=== PATIENT | female | born 1950 | race African-American/Black ===

== ENCOUNTER → 2019-12-17 | Emergency (ER) | payer MEDICARE, MEDICAID ==
[~2019-12-17] VITALS: Ht 160 cm; Wt 73.9 kg
[~2019-12-17] MED LIST: POTASSIUM CHL 20 Meq TABLET PO ONE
[2019-12-17 14:07] LABS: Basophils # (auto) 0 10 ^3/uL (0-0.2); Eosinophils # (auto) 0.1 10 ^3/uL (0-0.8); Eosinophils % (auto) 3.6 % (0.0-7.0); Hemoglobin 11.7 g/dL (12.2-16.2); Lymphocytes # (auto) 1.3 10 ^3/uL (0.4-5.4); Lymphocytes % (auto) 32.5 % (10.0-50.0); Mean Corpuscular Hemoglobin 32.7 pg (28.0-32.0); Mean Corpuscular Hgb Conc. 34.5 g/dL (32.0-36.0); Mean Corpuscular Volume 94.7 fL (80.0-100.0); Monocytes # (auto) 0.7 10 ^3/uL (0-1.3); Neutrophils # (auto) 1.9 10 ^3/uL (1.6-8.6); Neutrophils % (auto) 46.9 % (37.0-80.0); Nucleated Red Blood Cells % 0.1 %; Platelet Count (auto) 134 10^3/uL (140-450); Red Blood Cells 3.59 10^6/uL (4.0-5.20); Red Cell Distribution Width 15.1 % (11.8-14.3); White Blood Cell 4.1 10^3/uL (4.4-10.8)
[2019-12-17 14:23] LABS: BUN/Creatinine Ratio 17.2; Calcium 8.3 mg/dL (8.5-10.1)
[2019-12-17 14:26] LABS: Bilirubin, Total 1.5 mg/dL (0.2-1.0); Total Protein 8.1 g/dL (6.4-8.2)
[2019-12-17 15:10] VITALS: BP 127/70
== END | disposition home or self-care (01) ==
LOC: ER 12:19
DX: E87.6 Hypokalemia (principal); I10 Essential (primary) hypertension
CPT/HCPCS: 36415; 80053; 85025

== ENCOUNTER 2020-03-31 17:48 | Inpatient (IN) | payer MEDICARE, MEDICAID ==
[~2020-03-31] VITALS: Ht 160 cm; Wt 72.8 kg
[2020-03-31 19:50] LABS: Basophils # (auto) 0 10 ^3/uL (0-0.2); Basophils % (auto) 0.6 % (0.0-2.0); Eosinophils # (auto) 0.1 10 ^3/uL (0-0.8); Eosinophils % (auto) 3.1 % (0.0-7.0); Hematocrit 38.5 % (36.0-46.0); Hemoglobin 12.9 g/dL (12.2-16.2); Lymphocytes # (auto) 1.8 10 ^3/uL (0.4-5.4); Lymphocytes % (auto) 36.9 % (10.0-50.0); Mean Corpuscular Hemoglobin 30.2 pg (28.0-32.0); Mean Corpuscular Hgb Conc. 33.4 g/dL (32.0-36.0); Mean Corpuscular Volume 90.5 fL (80.0-100.0); Monocytes # (auto) 0.6 10 ^3/uL (0-1.3); Monocytes % (auto) 13.1 % (0.0-12.0); Neutrophils # (auto) 2.2 10 ^3/uL (1.6-8.6); Neutrophils % (auto) 46.3 % (37.0-80.0); Nucleated Red Blood Cells % 0.3 %; Platelet Count (auto) 106 10^3/uL (140-450); Red Blood Cells 4.26 10^6/uL (4.0-5.20); Red Cell Distribution Width 17.1 % (11.8-14.3); White Blood Cell 4.8 10^3/uL (4.4-10.8)
[2020-03-31 20:05] LABS: INR 1.49 (0.9-1.15)
[2020-03-31 20:06] LABS: Albumin 2.5 g/dL (3.4-5.0); Anion Gap 8 (5-15); Blood Urea Nitrogen 13 mg/dL (7-18); Calcium 8.2 mg/dL (8.5-10.1); Carbon Dioxide 22 mmol/L (21-32); Chloride 110 mmol/L (98-107); Glucose 81 mg/dL (74-106); Magnesium 2.1 mg/dL (1.6-2.6); Sodium 140 mmol/L (136-145)
[2020-03-31 20:12] LABS: Alanine Aminotransferase 64 U/L (13-56); Alkaline Phosphatase 149 U/L (45-117); Aspartate Aminotransferase 109 U/L (15-37); BUN/Creatinine Ratio 20.6; Bilirubin, Total 1.7 mg/dL (0.2-1.0); GFR African American 120 mL/min; GFR Non-African American 100 mL/min
[2020-03-31 20:32] LABS: Blood Alcohol < 3.0 mg/dL (0-5)
[2020-03-31 20:35] LABS: Potassium 2.8 mmol/L (3.5-5.1)
[2020-03-31] MEDS ORDERED: POTASSIUM CHL 20MEQ/100ML 100 ML IV ONE (20:45)
[2020-03-31] MEDS ORDERED: POTASSIUM EFFERVESENT TAB 25 MEQ PO ONE (20:45)
[2020-03-31] MEDS ORDERED: IOHEXOL 350 MG/ML 100ML IJ ONE (23:46)
[2020-04-01] VITALS (7 sets, daily range): BP systolic 118–126; BP diastolic 64–77
[2020-04-01 01:27] LABS: Urine Amorphous Crystal FEW /hpf (None Seen); Urine Bacteria FEW /hpf (None Seen); Urine Blood Negative /uL (Negative); Urine Mucus FEW (None Seen); Urine Specific Gravity 1.028 (1.001-1.035); Urine WBC 1 /hpf (0 - 5)
[2020-04-01 01:53] LABS: Alcohol, Urine < 3.0 mg/dL (0-10); Amphetamine Screen, Urine NEGATIVE (NEGATIVE); Barbiturate Scree,Urine NEGATIVE (NEGATIVE); Benzodiazephine Screen, Urine NEGATIVE (NEGATIVE); Cannabinoid Screen, Urine NEGATIVE (NEGATIVE); Cocaine Screen, Urine NEGATIVE (NEGATIVE); Opiate Scree,Urine NEGATIVE (NEGATIVE); Phencyclidine Screen, Urine NEGATIVE (NEGATIVE)
[2020-04-01] MEDS ORDERED: ONDANSETRON HCL 4 MG/2 ML VIAL IV PRN (04:15)
[2020-04-01] MEDS ORDERED: AMLO5TAB15 PO (05:29)
[2020-04-01] MEDS ORDERED: ALBUAER3 IN (05:29)
--- NOTE | 2020-04-01 05:56 | NUR ---
Telemetry admit from ER AUGUSTIN DAVIS admitted to [facility] unit after SBAR received. Patient oriented to Marquis coker RN, unit, room 202, bed, and unit policies regarding patient care and visiting hours. Patient VS taken, weighed by bedscale and encouraged to call if they need something. All questions and concerns addressed, patient verbalized understanding.
--- NOTE | 2020-04-01 07:30 | NUR ---
Opening Shift Note Assumed care of patient, awake and alert. No S/S of distress/SOB or pain. Bed in lowest and locked position with side rails up x2 and call light in reach. Instructed on POC and to call for assist PRN, will continue to monitor for changes Q1hr and PRN.
[2020-04-01] MEDS: POTASSIUM CHL 10 Meq TABLET PO SCH (09:37)
[2020-04-01] MEDS: FAMOTIDINE 20 MG TAB PO SCH ×2 (09:37→21:36)
[2020-04-01] MEDS: FUROSEMIDE 20 MG TAB PO SCH (09:37)
[2020-04-01] MEDS ORDERED: LACTULOSE 20Gm/30ML SOLN PO SCH (10:00)
[2020-04-01] MEDS ORDERED: TRIAMTERENE/HCTZ 37.5/25 MG CAP/TAB PO SCH (10:00)
--- NOTE | 2020-04-01 10:37 | NUR ---
SPOKE TO DR. VELA REGARDING PATIENT REQUEST FOR PAIN MEDICATIONS. MD AWARE AND NO NEW ORDERS RECEIVED AT THIS TIME.
[2020-04-01 11:10] LABS: Basophils # (auto) 0 10 ^3/uL (0-0.2); Basophils % (auto) 0.5 % (0.0-2.0); Eosinophils # (auto) 0.2 10 ^3/uL (0-0.8); Eosinophils % (auto) 4.9 % (0.0-7.0); Hemoglobin 11.2 g/dL (12.2-16.2); Lymphocytes # (auto) 1.5 10 ^3/uL (0.4-5.4); Lymphocytes % (auto) 38.2 % (10.0-50.0); Mean Corpuscular Hgb Conc. 33.1 g/dL (32.0-36.0); Mean Corpuscular Volume 90.4 fL (80.0-100.0); Monocytes # (auto) 0.8 10 ^3/uL (0-1.3); Neutrophils # (auto) 1.5 10 ^3/uL (1.6-8.6); Neutrophils % (auto) 37.4 % (37.0-80.0); Platelet Count (auto) 88 10^3/uL (140-450); Red Blood Cells 3.76 10^6/uL (4.0-5.20); Red Cell Distribution Width 17.1 % (11.8-14.3); White Blood Cell 3.9 10^3/uL (4.4-10.8)
[2020-04-01 11:24] LABS: Albumin 1.9 g/dL (3.4-5.0); Calcium 7.6 mg/dL (8.5-10.1)
[2020-04-01 11:26] LABS: BUN/Creatinine Ratio 19.3; Bilirubin, Total 1.4 mg/dL (0.2-1.0)
[2020-04-01] MEDS: cefTRIAXone 1GM/50ML D5W 50 ML IV SCH (12:04)
[2020-04-01] MEDS: rifAXIMin 550 MG TAB PO SCH ×2 (12:04→21:36)
[2020-04-01] MEDS ORDERED: POTASSIUM EFFERVESENT TAB 25 MEQ PO ONE (12:15)
[2020-04-01] MEDS: POTASSIUM CHL 20 Meq TABLET PO SCH ×2 (13:05→15:20)
[2020-04-01] MEDS: LACTULOSE 20Gm/30ML SOLN PO SCH ×3 (18:38→21:37)
--- NOTE | 2020-04-01 20:00 | NUR ---
Opening Shift Note Assumed care of patient, awake and alert. No S/S of distress/SOB or pain. Instructed on POC and to call for assist PRN, will continue to monitor for changes Q1hr and PRN.
[2020-04-02 05:00] VITALS: BP 119/67
[2020-04-02] MEDS: LACTULOSE 20Gm/30ML SOLN PO SCH (05:12)
[2020-04-02 06:12] LABS: Hematocrit 34.1 % (36.0-46.0); Hemoglobin 11.4 g/dL (12.2-16.2); Mean Corpuscular Hemoglobin 30.5 pg (28.0-32.0); Mean Corpuscular Hgb Conc. 33.5 g/dL (32.0-36.0); Mean Corpuscular Volume 91.2 fL (80.0-100.0); Platelet Count (auto) 86 10^3/uL (140-450); Red Blood Cells 3.74 10^6/uL (4.0-5.20); Red Cell Distribution Width 17.2 % (11.8-14.3); White Blood Cell 3.9 10^3/uL (4.4-10.8)
[2020-04-02 06:19] LABS: Band Neutrophils % (manual) 0; Basophils % (manual) 0 (0.0-2.0); Blast Cells 0; Metamyelocytes % 0; Promyelocytes % 0; Reactive Lymphocytes 0
[2020-04-02 06:36] LABS: Albumin 1.8 g/dL (3.4-5.0); Calcium 7.5 mg/dL (8.5-10.1); Potassium 3.9 mmol/L (3.5-5.1)
[2020-04-02 06:38] LABS: BUN/Creatinine Ratio 20.4
[2020-04-02 06:39] LABS: Bilirubin, Total 1.4 mg/dL (0.2-1.0); Total Protein 6.8 g/dL (6.4-8.2)
[2020-04-02 07:12] LABS: Eosinophils % (manual) 6 (0-7); Lymphocytes % (manual) 48 (10.0-50.0); Monocytes % (manual) 8 (0-12); Myelocytes % 1
[2020-04-02 08:59] VITALS: BP 111/64
[2020-04-02] MEDS: FAMOTIDINE 20 MG TAB PO SCH (09:37)
[2020-04-02] MEDS: rifAXIMin 550 MG TAB PO SCH (09:37)
[2020-04-02] MEDS: POTASSIUM CHL 10 Meq TABLET PO SCH (09:37)
[2020-04-02] MEDS: cefTRIAXone 1GM/50ML D5W 50 ML IV SCH (09:38)
[2020-04-02] MEDS: FUROSEMIDE 20 MG TAB PO SCH (09:38)
--- NOTE | 2020-04-02 09:56 | NUR ---
Patient OOB ad joy. States she is ready to go home. Will continue to monitor.
--- NOTE | 2020-04-02 11:48 | NUR ---
Dr. Lynch in to see patient as hospitalist. Patien to be discharged today.
[2020-04-02 12:09] VITALS: BP 118/78
[2020-04-02 13:33] VITALS: BP 111/64
== END 2020-04-02 14:10 | disposition home or self-care (01) | DRG 443 ==
LOC: EDSEX 17:48 → ER 17:48 → EDBD 17:48 → OVERFLOW 17:49 → CENTRAL 04-01 05:15
PROVIDERS: ADMIT Nurse Practitioner; ATTEND Internal Medicine Nephrology
DX: K72.90 Hepatic failure, unspecified without coma (principal); F41.9 Anxiety disorder, unspecified; E87.6 Hypokalemia; K74.60 Unspecified cirrhosis of liver; I10 Essential (primary) hypertension; N28.1 Cyst of kidney, acquired; G89.29 Other chronic pain; M54.9 Dorsalgia, unspecified; R74.0 Nonspecific elevation of levels of transaminase and lactic acid dehydrogenase [LDH]; Z87.891 Personal history of nicotine dependence; Z90.49 Acquired absence of other specified parts of digestive tract
CPT/HCPCS: 36415; 70450; 71275; 76705; 80053; 80307; 80320; 81001; 82140; 83605; 83735; 84132; 84484; 85007; 85025; 85027; 85379; 85610; 85730; 87040; 87086; G0378; J0696; J3480

== ENCOUNTER → 2020-06-02 | Outpatient (CLI) | payer MEDICARE, MEDICAID ==
[~2020-06-02] MED LIST changes: +ALBUAER3 IN; +AMLO5TAB15 PO; -POTASSIUM CHL 20 Meq TABLET PO ONE
[2020-06-02 11:20] LABS: Basophils # (auto) 0 10 ^3/uL (0-0.2); Basophils % (auto) 0.9 % (0.0-2.0); Eosinophils # (auto) 0.2 10 ^3/uL (0-0.8); Eosinophils % (auto) 4.5 % (0.0-7.0); Hematocrit 36.3 % (36.0-46.0); Hemoglobin 12.1 g/dL (12.2-16.2); Lymphocytes # (auto) 1.5 10 ^3/uL (0.4-5.4); Lymphocytes % (auto) 37.5 % (10.0-50.0); Mean Corpuscular Hemoglobin 30.9 pg (28.0-32.0); Mean Corpuscular Hgb Conc. 33.4 g/dL (32.0-36.0); Mean Corpuscular Volume 92.5 fL (80.0-100.0); Monocytes # (auto) 0.7 10 ^3/uL (0-1.3); Monocytes % (auto) 16.7 % (0.0-12.0); Neutrophils # (auto) 1.6 10 ^3/uL (1.6-8.6); Neutrophils % (auto) 40.4 % (37.0-80.0); Nucleated Red Blood Cells % 0.1 %; Platelet Count (auto) 90 10^3/uL (140-450); Red Blood Cells 3.92 10^6/uL (4.0-5.20); Red Cell Distribution Width 15.5 % (11.8-14.3); White Blood Cell 3.9 10^3/uL (4.4-10.8)
[2020-06-02 11:44] LABS: Calcium 8.3 mg/dL (8.5-10.1); Potassium 3.3 mmol/L (3.5-5.1)
[2020-06-02 11:50] LABS: Albumin 2.5 g/dL (3.4-5.0); BUN/Creatinine Ratio 15.7; Bilirubin, Total 1.3 mg/dL (0.2-1.0); Total Protein 7.5 g/dL (6.4-8.2)
[2020-06-02 11:51] LABS: Urine Bacteria FEW /hpf (None Seen); Urine Blood Negative /uL (Negative); Urine Mucus FEW (None Seen); Urine Specific Gravity 1.024 (1.001-1.035); Urine WBC 36 /hpf (0 - 5)
[2020-06-02 11:57] LABS: Hepatitis B Surface Antibody Positive
[2020-06-02 12:35] LABS: Hepatitis A Total Antibody Positive
[2020-06-02 14:43] LABS: Hepatitis C Antibody Reactive (Negative)
[2020-06-02 14:46] LABS: Hepatitis A Ab IgM Negative
[2020-06-02 14:49] LABS: Hepatitis B Core IgM Negative
[2020-06-02 14:56] LABS: Hepatitis B Core Total AB Positive
== END | disposition home or self-care (01) ==
LOC: LAB 10:38
PROVIDERS: ATTEND Internal Medicine
DX: B18.2 Chronic viral hepatitis C (principal); I10 Essential (primary) hypertension
CPT/HCPCS: 36415; 80053; 81001; 82140; 82550; 83735; 85025; 86704; 86705; 86706; 86708; 86709; 86803

== ENCOUNTER → 2020-06-22 | Outpatient (CLI) | payer MEDICARE, MEDICAID | END | disposition home or self-care (01) | LOC: LAB 10:16 | PROVIDERS: ATTEND Internal Medicine | DX: E87.6 Hypokalemia (principal); K74.60 Unspecified cirrhosis of liver | CPT/HCPCS: 36415; 84132; 87340 ==

== ENCOUNTER → 2020-08-01 | Outpatient (CLI) | payer MEDICARE, MEDICAID ==
[2020-08-01 10:20] LABS: Basophils # (auto) 0 10 ^3/uL (0-0.2); Basophils % (auto) 0.7 % (0.0-2.0); Eosinophils # (auto) 0.1 10 ^3/uL (0-0.8); Eosinophils % (auto) 2.1 % (0.0-7.0); Hematocrit 40.6 % (36.0-46.0); Hemoglobin 13.4 g/dL (12.2-16.2); Lymphocytes # (auto) 1.5 10 ^3/uL (0.4-5.4); Lymphocytes % (auto) 31.4 % (10.0-50.0); Mean Corpuscular Hemoglobin 30.5 pg (28.0-32.0); Mean Corpuscular Volume 92.4 fL (80.0-100.0); Monocytes # (auto) 0.8 10 ^3/uL (0-1.3); Monocytes % (auto) 15.9 % (0.0-12.0); Neutrophils # (auto) 2.4 10 ^3/uL (1.6-8.6); Neutrophils % (auto) 49.9 % (37.0-80.0); Nucleated Red Blood Cells % 0.2 %; Platelet Count (auto) 94 10^3/uL (140-450); Red Cell Distribution Width 16.2 % (11.8-14.3); White Blood Cell 4.8 10^3/uL (4.4-10.8)
[2020-08-01 10:41] LABS: Potassium 4.2 mmol/L (3.5-5.1)
[2020-08-01 11:09] LABS: INR 1.4 (0.9-1.15)
== END | disposition home or self-care (01) ==
LOC: LAB 10:05
PROVIDERS: ATTEND Internal Medicine
DX: I10 Essential (primary) hypertension (principal); B18.2 Chronic viral hepatitis C
CPT/HCPCS: 36415; 80061; 84132; 85025; 85610

== ENCOUNTER 2021-02-13 19:26 | Emergency (ER) | payer MEDICARE, MEDICAID ==
[~2021-02-13] VITALS: Ht 160 cm; Wt 68.0 kg
[~2021-02-13 19:26] MED LIST changes: +AMLO-489 PO; -AMLO5TAB15 PO
[2021-02-13 20:36] LABS: Basophils # (auto) 0 10 ^3/uL (0-0.2); Basophils % (auto) 0.6 % (0.0-2.0); Eosinophils # (auto) 0.1 10 ^3/uL (0-0.8); Eosinophils % (auto) 2.4 % (0.0-7.0); Hematocrit 38.5 % (36.0-46.0); Hemoglobin 13.3 g/dL (12.2-16.2); Lymphocytes # (auto) 1.7 10 ^3/uL (0.4-5.4); Lymphocytes % (auto) 36.8 % (10.0-50.0); Mean Corpuscular Hemoglobin 32.3 pg (28.0-32.0); Mean Corpuscular Hgb Conc. 34.4 g/dL (32.0-36.0); Monocytes # (auto) 0.8 10 ^3/uL (0-1.3); Monocytes % (auto) 16.9 % (0.0-12.0); Neutrophils % (auto) 43.3 % (37.0-80.0); Nucleated Red Blood Cells % 0.8 %; Platelet Count (auto) 75 10^3/uL (140-450); Red Cell Distribution Width 15.5 % (11.8-14.3); White Blood Cell 4.7 10^3/uL (4.4-10.8)
[2021-02-13 20:52] LABS: Potassium 4.1 mmol/L (3.5-5.1)
[2021-02-13 20:59] LABS: Albumin 1.9 g/dL (3.4-5.0); BUN/Creatinine Ratio 17.6; Bilirubin, Total 3.4 mg/dL (0.2-1.0); Calcium 7.9 mg/dL (8.5-10.1); Total Protein 7.3 g/dL (6.4-8.2)
[2021-02-13 23:04] VITALS: BP 118/63
== END 2021-02-13 23:06 | disposition home or self-care (01) ==
LOC: ER 19:26
DX: E72.29 Other disorders of urea cycle metabolism (principal); K74.60 Unspecified cirrhosis of liver; I10 Essential (primary) hypertension; Z79.899 Other long term (current) drug therapy; Z90.49 Acquired absence of other specified parts of digestive tract; Z98.890 Other specified postprocedural states; Z87.891 Personal history of nicotine dependence
CPT/HCPCS: 36415; 80053; 82140; 85025

== ENCOUNTER 2022-06-29 22:29 | Inpatient (IN) | payer OTHER, MEDICAID ==
[~2022-06-29] VITALS: Ht 167.6 cm; Wt 70.2 kg
[2022-06-29 23:25] LABS: Hemoglobin 13.7 g/dL (12.2-16.2); Red Cell Distribution Width 15.5 % (11.8-14.3)
[2022-06-29 23:26] LABS: Hematocrit 41.3 % (36.0-46.0); Mean Corpuscular Hemoglobin 32.5 pg (28.0-32.0); Mean Corpuscular Hgb Conc. 33.1 g/dL (32.0-36.0); Mean Corpuscular Volume 98.2 fL (80.0-100.0); White Blood Cell 9.1 10^3/uL (4.4-10.8)
[2022-06-29 23:47] LABS: Albumin 1.9 g/dL (3.4-5.0); Calcium 7.4 mg/dL (8.5-10.1)
[2022-06-29 23:49] LABS: BUN/Creatinine Ratio 23.1
[2022-06-29 23:51] LABS: Band Neutrophils % (manual) 0; Basophils % (manual) 0 (0.0-2.0); Blast Cells 0; Eosinophils % (manual) 0 (0-7); Metamyelocytes % 0; Myelocytes % 0; Promyelocytes % 0; Reactive Lymphocytes 0
[2022-06-29 23:52] LABS: Bilirubin, Total 4.7 mg/dL (0.2-1.0); Total Protein 5.3 g/dL (6.4-8.2)
[2022-06-29 23:53] LABS: Lymphocytes % (manual) 9 (10.0-50.0); Monocytes % (manual) 12 (0-12)
[2022-06-30] MEDS ORDERED: LACTULOSE 20Gm/30ML SOLN PO ONE (01:00)
[2022-06-30 01:19] LABS: Urine Bacteria NONE SEEN /hpf (None Seen); Urine Blood Negative /uL (Negative); Urine Mucus FEW (None Seen); Urine Specific Gravity 1.032 (1.001-1.035); Urine WBC 2 /hpf (0 - 5)
[2022-06-30 01:38] LABS: Amphetamine Screen, Urine NEGATIVE (NEGATIVE); Barbiturate Scree,Urine NEGATIVE (NEGATIVE); Benzodiazephine Screen, Urine POSITIVE (NEGATIVE); Cannabinoid Screen, Urine NEGATIVE (NEGATIVE); Cocaine Screen, Urine NEGATIVE (NEGATIVE); Opiate Scree,Urine POSITIVE (NEGATIVE); Phencyclidine Screen, Urine NEGATIVE (NEGATIVE)
[2022-06-30] MEDS ORDERED: DOCUSATE SOD 100 MG CAP PO PRN (02:00)
[2022-06-30] MEDS ORDERED: ALBUMIN 25% 100 ML IV ONE (02:00)
[2022-06-30] MEDS ORDERED: ONDANSETRON HCL 4 MG/2 ML VIAL IV PRN (02:00)
[2022-06-30] MEDS ORDERED: MORPHINE SULFATE INJ 2 MG/ml SYRG IV PRN ×2 (02:00→02:30)
[2022-06-30] MEDS ORDERED: NITROGLYCERIN 0.4 MG SL TAB SL PRN (02:30)
[2022-06-30] MEDS ORDERED: LACTULOSE 20Gm/30ML SOLN PR SCH (02:30)
[2022-06-30] MEDS ORDERED: AZITHROMYCIN 500MG/ 250ML 250 ML IV ONE (05:00)
[2022-06-30] MEDS ORDERED: LACTULOSE 20Gm/30ML SOLN PO SCH (06:00)
[2022-06-30] MEDS: SODIUM CHLOR 0.9% PF (SALINE LOCK) 10ML VIAL/SYR IV SCH ×2 (06:12→14:08)
[2022-06-30 09:00] VITALS: BP 116/69
[2022-06-30 09:05] LABS: Hematocrit 40.7 % (36.0-46.0); Hemoglobin 13.5 g/dL (12.2-16.2); Mean Corpuscular Hemoglobin 32.5 pg (28.0-32.0); Mean Corpuscular Hgb Conc. 33.2 g/dL (32.0-36.0); Mean Corpuscular Volume 97.8 fL (80.0-100.0); Red Blood Cells 4.16 10^6/uL (4.0-5.20); Red Cell Distribution Width 15.4 % (11.8-14.3); White Blood Cell 10.8 10^3/uL (4.4-10.8)
[2022-06-30 09:08] LABS: Basophils % (manual) 0 (0.0-2.0); Blast Cells 0; Eosinophils % (manual) 0 (0-7); Metamyelocytes % 0; Myelocytes % 0; Promyelocytes % 0; Reactive Lymphocytes 0
[2022-06-30 09:43] LABS: Band Neutrophils % (manual) 1; Lymphocytes % (manual) 11 (10.0-50.0); Monocytes % (manual) 20 (0-12)
[2022-06-30 09:53] LABS: Alanine Aminotransferase 41 U/L (13-56); Alkaline Phosphatase 111 U/L (45-117); Anion Gap 8 (5-15); Aspartate Aminotransferase 52 U/L (15-37); BUN/Creatinine Ratio 21.3; Blood Urea Nitrogen 19 mg/dL (7-18); Calcium 7.6 mg/dL (8.5-10.1); Carbon Dioxide 21 mmol/L (21-32); Chloride 114 mmol/L (98-107); GFR African American 80 mL/min; GFR Non-African American 66 mL/min; Glucose 72 mg/dL (74-106); Potassium 4.9 mmol/L (3.5-5.1); Sodium 143 mmol/L (136-145)
[2022-06-30 09:54] LABS: Albumin 2.5 g/dL (3.4-5.0); Total Protein 5.7 g/dL (6.4-8.2)
[2022-06-30] MEDS: LACTULOSE 10g/15ml SOLN 473ML PR SCH ×3 (10:14→17:41)
[2022-06-30] MEDS: AZITHROMYCIN 500MG/ 250ML 250 ML IV SCH (10:14)
[2022-06-30] MEDS ORDERED: THIAMINE 100mg/ml INJ (200mg/2ml VIAL) IV ONE (17:15)
[2022-06-30 20:50] VITALS: BP 113/64
[2022-06-30 21:11] VITALS: BP 113/64
[2022-06-30 21:26] VITALS: BP 113/64
[2022-07-01] MEDS: SODIUM CHLOR 0.9% PF (SALINE LOCK) 10ML VIAL/SYR IV SCH ×4 (00:37→21:47)
[2022-07-01] MEDS: LACTULOSE 10g/15ml SOLN 473ML PR SCH ×2 (00:37→05:54)
[2022-07-01 05:00] VITALS: BP 120/67
[2022-07-01] MEDS: AZITHROMYCIN 500MG/ 250ML 250 ML IV SCH (08:59)
[2022-07-01] MEDS: THIAMINE 100mg/ml INJ (200mg/2ml VIAL) IV SCH (09:00)
[2022-07-01 09:26] LABS: Albumin 2.1 g/dL (3.4-5.0); Calcium 7.9 mg/dL (8.5-10.1)
[2022-07-01 09:29] LABS: BUN/Creatinine Ratio 23.2; Bilirubin, Total 7.7 mg/dL (0.2-1.0); Total Protein 5.5 g/dL (6.4-8.2)
[2022-07-01 09:55] LABS: Potassium 5.7 mmol/L (3.5-5.1)
[2022-07-01] MEDS ORDERED: PNEUMOCOCCAL VACC POLYS 25 MCG/0.5 ML VIAL IM ONE (10:00)
[2022-07-01 12:22] VITALS: BP 120/66
[2022-07-01] MEDS: LACTULOSE 20Gm/30ML SOLN PO SCH ×2 (12:33→18:32)
[2022-07-01] MEDS: KETOROLAC TROMETH 30 MG/ML 1ML VIAL IV PRN (12:33)
[2022-07-01] MEDS: FOLIC ACID 1 MG, MULTIPLE VITAMIN 10 ML, MAGNESIUM SULF SDV 50% 8 MEQ, THIAMINE INJ 100... INJ SCH ×5 (13:18)
[2022-07-01] MEDS ORDERED: LACTULOSE 20Gm/30ML SOLN PO ONE (14:00)
[2022-07-01 14:25] LABS: Red Cell Distribution Width 15.7 % (11.8-14.3)
[2022-07-01 14:27] LABS: Hemoglobin 14.5 g/dL (12.2-16.2); Mean Corpuscular Hemoglobin 32.6 pg (28.0-32.0); Mean Corpuscular Volume 98.8 fL (80.0-100.0); Red Blood Cells 4.46 10^6/uL (4.0-5.20); White Blood Cell 15.7 10^3/uL (4.4-10.8)
[2022-07-01 14:33] LABS: Band Neutrophils % (manual) 0; Basophils % (manual) 0 (0.0-2.0); Blast Cells 0; Eosinophils % (manual) 0 (0-7); Metamyelocytes % 0; Myelocytes % 0; Promyelocytes % 0; Reactive Lymphocytes 0
[2022-07-01] MEDS ORDERED: METO25TA5 PO (14:37)
[2022-07-01] MEDS ORDERED: AMOX875T3 PO (14:37)
[2022-07-01] MEDS ORDERED: PRED1SUS4 OP (14:37)
[2022-07-01] MEDS ORDERED: ACE3T PO (14:37)
[2022-07-01] MEDS ORDERED: LACT10PA2 PO (14:37)
[2022-07-01] MEDS ORDERED: POTA-180 PO (14:37)
[2022-07-01] MEDS ORDERED: LORA-622 PO (14:37)
[2022-07-01] MEDS ORDERED: CHOL20007 PO (14:37)
[2022-07-01] MEDS ORDERED: FAMO-12 PO (14:37)
[2022-07-01] MEDS ORDERED: DIAZ2TAB PO (14:37)
[2022-07-01] MEDS ORDERED: AMIO200T33 PO (14:37)
[2022-07-01] MEDS ORDERED: POM RIGHTEYE (14:37)
[2022-07-01] MEDS ORDERED: SPIR25TA8 PO (14:37)
[2022-07-01 16:58] LABS: Lymphocytes % (manual) 7 (10.0-50.0); Monocytes % (manual) 8 (0-12)
[2022-07-01 17:19] VITALS: BP 119/64
[2022-07-01 19:02] LABS: INR 2.16 (0.9-1.15)
[2022-07-01 21:26] VITALS: BP 99/51
[2022-07-02] MEDS: LACTULOSE 20Gm/30ML SOLN PO SCH ×4 (00:34→18:22)
[2022-07-02 05:45] VITALS: BP 104/49
[2022-07-02] MEDS: SODIUM CHLOR 0.9% PF (SALINE LOCK) 10ML VIAL/SYR IV SCH ×3 (05:48→21:40)
[2022-07-02 06:37] LABS: Anion Gap 9 (5-15); BUN/Creatinine Ratio 20.4; Blood Urea Nitrogen 19 mg/dL (7-18); Calcium 7.3 mg/dL (8.5-10.1); Carbon Dioxide 21 mmol/L (21-32); Chloride 111 mmol/L (98-107); GFR African American 76 mL/min; GFR Non-African American 63 mL/min; Glucose 87 mg/dL (74-106); Potassium 4.5 mmol/L (3.5-5.1); Sodium 141 mmol/L (136-145)
[2022-07-02 09:00] VITALS: BP_SYST 113; BP_SYST 164; BP_DIAS 58; BP_DIAS 76
[2022-07-02] MEDS: THIAMINE 100mg/ml INJ (200mg/2ml VIAL) IV SCH (09:28)
[2022-07-02] MEDS: AZITHROMYCIN 500MG/ 250ML 250 ML IV SCH (09:28)
[2022-07-02] MEDS: FOLIC ACID 1 MG, MULTIPLE VITAMIN 10 ML, MAGNESIUM SULF SDV 50% 8 MEQ, THIAMINE INJ 100... INJ SCH ×5 (12:34)
[2022-07-02 13:00] VITALS: BP 123/52
[2022-07-02] MEDS: KETOROLAC TROMETH 30 MG/ML 1ML VIAL IV PRN (18:59)
[2022-07-02 20:00] VITALS: BP 96/44
[2022-07-02 22:00] VITALS: BP 96/44
[2022-07-03] MEDS: LACTULOSE 20Gm/30ML SOLN PO SCH ×4 (00:23→18:27)
[2022-07-03 05:00] VITALS: BP 128/53
[2022-07-03 06:12] LABS: Basophils # (auto) 0 10 ^3/uL (0-0.2); Eosinophils # (auto) 0.1 10 ^3/uL (0-0.8); Lymphocytes # (auto) 0.8 10 ^3/uL (0.4-5.4)
[2022-07-03 06:16] LABS: Basophils % (auto) 0.3 % (0.0-2.0); Eosinophils % (auto) 1.2 % (0.0-7.0); Hematocrit 37.4 % (36.0-46.0); Hemoglobin 13.2 g/dL (12.2-16.2); Lymphocytes % (auto) 8.1 % (10.0-50.0); Mean Corpuscular Hemoglobin 34.7 pg (28.0-32.0); Mean Corpuscular Hgb Conc. 35.3 g/dL (32.0-36.0); Mean Corpuscular Volume 98.4 fL (80.0-100.0); Monocytes # (auto) 1.2 10 ^3/uL (0-1.3); Monocytes % (auto) 12.6 % (0.0-12.0); Neutrophils # (auto) 7.4 10 ^3/uL (1.6-8.6); Neutrophils % (auto) 77.8 % (37.0-80.0); Nucleated Red Blood Cells % 0.2 %; White Blood Cell 9.5 10^3/uL (4.4-10.8)
[2022-07-03] MEDS: SODIUM CHLOR 0.9% PF (SALINE LOCK) 10ML VIAL/SYR IV SCH ×2 (06:20→13:54)
[2022-07-03 06:23] LABS: INR 2.08 (0.9-1.15); Partial Thromboplastin Time 49.1 sec (24.6-33.4)
[2022-07-03 06:36] LABS: Calcium 7.1 mg/dL (8.5-10.1); Potassium 4.1 mmol/L (3.5-5.1)
[2022-07-03 06:40] LABS: BUN/Creatinine Ratio 22.8; Total Protein 4.9 g/dL (6.4-8.2)
[2022-07-03 09:00] VITALS: BP 118/59
[2022-07-03] MEDS: AZITHROMYCIN 500MG/ 250ML 250 ML IV SCH (10:15)
[2022-07-03] MEDS: THIAMINE 100mg/ml INJ (200mg/2ml VIAL) IV SCH (10:15)
[2022-07-03 13:00] VITALS: BP 137/73
[2022-07-03] MEDS: FOLIC ACID 1 MG, MULTIPLE VITAMIN 10 ML, MAGNESIUM SULF SDV 50% 8 MEQ, THIAMINE INJ 100... INJ SCH ×5 (16:30)
[2022-07-03 16:33] VITALS: BP 145/71
[2022-07-03 22:00] VITALS: BP 123/64
[2022-07-04] MEDS: LACTULOSE 20Gm/30ML SOLN PO SCH ×4 (01:26→23:12)
[2022-07-04 05:00] VITALS: BP 120/68
[2022-07-04] MEDS: SODIUM CHLOR 0.9% PF (SALINE LOCK) 10ML VIAL/SYR IV SCH ×3 (06:56→22:04)
[2022-07-04] MEDS: THIAMINE 100mg/ml INJ (200mg/2ml VIAL) IV SCH (10:17)
[2022-07-04] MEDS: AZITHROMYCIN 500MG/ 250ML 250 ML IV SCH (10:17)
[2022-07-04] MEDS ORDERED: POM RIGHTEYE (10:29)
[2022-07-04] MEDS ORDERED: LACT10PA2 PO (10:30)
[2022-07-04] MEDS: FOLIC ACID 1 MG, MULTIPLE VITAMIN 10 ML, MAGNESIUM SULF SDV 50% 8 MEQ, THIAMINE INJ 100... INJ SCH ×5 (12:00)
[2022-07-04 16:09] VITALS: BP 112/50
[2022-07-04 22:00] VITALS: BP 104/52
[2022-07-05] MEDS: KETOROLAC TROMETH 30 MG/ML 1ML VIAL IV PRN (00:18)
[2022-07-05 04:52] VITALS: BP 108/55
[2022-07-05] MEDS: SODIUM CHLOR 0.9% PF (SALINE LOCK) 10ML VIAL/SYR IV SCH ×2 (05:38→11:24)
[2022-07-05] MEDS: LACTULOSE 20Gm/30ML SOLN PO SCH ×3 (05:39→18:00)
[2022-07-05] MEDS: THIAMINE 100mg/ml INJ (200mg/2ml VIAL) IV SCH (08:21)
[2022-07-05] MEDS: AZITHROMYCIN 500MG/ 250ML 250 ML IV SCH (08:22)
[2022-07-05 09:00] VITALS: BP 104/56
[2022-07-05 10:25] LABS: Hepatitis B Surface Antibody Positive (Negative)
[2022-07-05 10:53] LABS: Hepatitis A Total Antibody Positive (Negative)
[2022-07-05 11:31] VITALS: BP 104/56
[2022-07-05] MEDS: FOLIC ACID 1 MG, MULTIPLE VITAMIN 10 ML, MAGNESIUM SULF SDV 50% 8 MEQ, THIAMINE INJ 100... INJ SCH ×5 (12:00)
[2022-07-05 13:00] VITALS: BP 109/57
[2022-07-05 13:08] LABS: Hepatitis C Antibody Positive (Negative)
[2022-07-05 17:00] VITALS: BP 107/59
== END 2022-07-05 20:00 | DRG 442 ==
LOC: EDBD 22:29 → EDUNIT# 22:29 → ER 22:29 → TELE 06-30 02:18 → TELE-WESTW 06-30 20:50
PROVIDERS: ADMIT Nurse Practitioner Family; ATTEND Hospitalist
PROC: 05HD33Z Insertion of Infusion Device into Right Cephalic Vein, Percutaneous Approach (ICD-10-PCS; principal; 2022-07-03)
PROC: B54MZZA Ultrasonography of Right Upper Extremity Veins, Guidance (ICD-10-PCS; 2022-07-03)
DX: K72.90 Hepatic failure, unspecified without coma (principal); D68.4 Acquired coagulation factor deficiency; E44.1 Mild protein-calorie malnutrition; D69.6 Thrombocytopenia, unspecified; E88.09 Other disorders of plasma-protein metabolism, not elsewhere classified; K74.60 Unspecified cirrhosis of liver; B19.20 Unspecified viral hepatitis C without hepatic coma; E87.6 Hypokalemia; Z20.822 Contact with and (suspected) exposure to COVID-19; I12.9 Hypertensive chronic kidney disease with stage 1 through stage 4 chronic kidney disease, or unspecified chronic kidney disease; N18.9 Chronic kidney disease, unspecified; Z82.49 Family history of ischemic heart disease and other diseases of the circulatory system; Z91.19 Patient's noncompliance with other medical treatment and regimen; Z68.25 Body mass index [BMI] 25.0-25.9, adult; Z90.49 Acquired absence of other specified parts of digestive tract; Z87.891 Personal history of nicotine dependence
CPT/HCPCS: 36415; 76705; 80048; 80053; 80307; 80320; 81001; 82140; 82607; 82746; 83605; 83880; 84443; 84484; 85007; 85025; 85027; 85610; 85730; 86038; 86704; 86706; 86708; 86803; 87340; 93005; 95819; 96365; 96367; 96375; 97110; 97116; 97163; 97530; G0378; J1885; P9047

== ENCOUNTER 2022-11-09 17:18 | Inpatient (IN) | payer OTHER, MEDICAID ==
[~2022-11-09] VITALS: Ht 162.6 cm; Wt 67.3 kg
[~2022-11-09 17:18] MED LIST changes: +ACE3T PO; +AMIO200T33 PO; +CHOL20007 PO; +FAMO-12 PO; +LACT10PA2 PO; +METO25TA5 PO; +POM RIGHTEYE; +POTA-180 PO; +PRED1SUS4 OP; +SPIR25TA8 PO
[2022-11-09 19:22] LABS: Basophils # (auto) 0 10 ^3/uL (0-0.2); Basophils % (auto) 0.9 % (0.0-2.0); Eosinophils # (auto) 0.3 10 ^3/uL (0-0.8); Eosinophils % (auto) 5.4 % (0.0-7.0); Hematocrit 43.1 % (36.0-46.0); Hemoglobin 14.1 g/dL (12.2-16.2); Lymphocytes # (auto) 1.2 10 ^3/uL (0.4-5.4); Lymphocytes % (auto) 25.5 % (10.0-50.0); Mean Corpuscular Hemoglobin 32.3 pg (28.0-32.0); Mean Corpuscular Hgb Conc. 32.6 g/dL (32.0-36.0); Mean Corpuscular Volume 99.2 fL (80.0-100.0); Monocytes # (auto) 0.7 10 ^3/uL (0-1.3); Neutrophils # (auto) 2.6 10 ^3/uL (1.6-8.6); Neutrophils % (auto) 54.2 % (37.0-80.0); Nucleated Red Blood Cells % 0.1 %; Red Blood Cells 4.35 10^6/uL (4.0-5.20); Red Cell Distribution Width 17.8 % (11.8-14.3); White Blood Cell 4.9 10^3/uL (4.4-10.8)
[2022-11-09 19:38] LABS: INR 1.61 (0.9-1.15)
[2022-11-09 19:46] LABS: Alanine Aminotransferase 47 U/L (13-56); Albumin 2.2 g/dL (3.4-5.0); Anion Gap 5 (5-15); Aspartate Aminotransferase 81 U/L (15-37); BUN/Creatinine Ratio 14.7; Blood Alcohol < 3.0 mg/dL (0-5); Blood Urea Nitrogen 10 mg/dL (7-18); Calcium 8.6 mg/dL (8.5-10.1); Carbon Dioxide 25 mmol/L (21-32); Chloride 116 mmol/L (98-107); GFR African American 110 mL/min; GFR Non-African American 91 mL/min; Glucose 85 mg/dL (74-106); Potassium 3.9 mmol/L (3.5-5.1); Sodium 146 mmol/L (136-145)
[2022-11-09 19:49] LABS: Alkaline Phosphatase 142 U/L (45-117); Bilirubin, Total 2.3 mg/dL (0.2-1.0); Total Protein 6.4 g/dL (6.4-8.2)
[2022-11-10] MEDS ORDERED: ONDANSETRON HCL 4 MG/2 ML VIAL IV PRN (00:15)
[2022-11-10] MEDS ORDERED: hydrALAZINE HCL 20 MG/ML VL IV PRN (00:15)
[2022-11-10] MEDS ORDERED: MORPHINE SULFATE INJ 2 MG/ml SYRG IV PRN ×2 (00:15→01:00)
[2022-11-10] MEDS ORDERED: NITROGLYCERIN 0.4 MG SL TAB SL PRN (01:00)
[2022-11-10] MEDS ORDERED: ALBUMIN 25% 100 ML IV ONE (01:00)
[2022-11-10] MEDS: HYDROcodone-ACET 5/325MG TAB PO PRN ×3 (02:21→17:45)
[2022-11-10 03:16] LABS: Urine Bacteria FEW /hpf (None Seen); Urine Blood Negative /uL (Negative); Urine Hyaline Cast FEW /lpf (0 - 2); Urine Mucus FEW (None Seen); Urine Specific Gravity 1.022 (1.001-1.035); Urine WBC 6 /hpf (0 - 5)
[2022-11-10 05:21] LABS: Basophils # (auto) 0 10 ^3/uL (0-0.2); Eosinophils # (auto) 0.3 10 ^3/uL (0-0.8); Hemoglobin 11.1 g/dL (12.2-16.2); Lymphocytes # (auto) 1.2 10 ^3/uL (0.4-5.4); Lymphocytes % (auto) 24.2 % (10.0-50.0); Mean Corpuscular Hemoglobin 33.2 pg (28.0-32.0); Monocytes # (auto) 0.8 10 ^3/uL (0-1.3); Neutrophils # (auto) 2.5 10 ^3/uL (1.6-8.6); Red Blood Cells 3.33 10^6/uL (4.0-5.20); White Blood Cell 4.8 10^3/uL (4.4-10.8)
[2022-11-10 05:24] LABS: Basophils % (auto) 0.3 % (0.0-2.0); Eosinophils % (auto) 6.3 % (0.0-7.0); Hematocrit 33.1 % (36.0-46.0); Mean Corpuscular Hgb Conc. 33.4 g/dL (32.0-36.0); Mean Corpuscular Volume 99.2 fL (80.0-100.0); Monocytes % (auto) 16.3 % (0.0-12.0); Neutrophils % (auto) 52.9 % (37.0-80.0); Nucleated Red Blood Cells % 0.3 %; Red Cell Distribution Width 17.7 % (11.8-14.3)
[2022-11-10 05:32] LABS: Albumin 2.2 g/dL (3.4-5.0); Calcium 7.9 mg/dL (8.5-10.1); Potassium 3.8 mmol/L (3.5-5.1)
[2022-11-10 05:36] LABS: BUN/Creatinine Ratio 14.5; Bilirubin, Total 1.7 mg/dL (0.2-1.0)
[2022-11-10] MEDS: SODIUM CHLOR 0.9% PF (SALINE LOCK) 10ML VIAL/SYR IV SCH ×2 (06:02→14:00)
[2022-11-10] MEDS: LACTULOSE 20Gm/30ML SOLN PO SCH ×3 (06:02→17:36)
[2022-11-10] MEDS: FAMOTIDINE (10MG/ML) 2ML VL IV SCH (10:08)
[2022-11-10] MEDS: SPIRONOLACTONE 25 MG TAB PO SCH (10:08)
[2022-11-10 11:45] VITALS: BP 155/88
[2022-11-10 17:00] VITALS: BP 149/80
[2022-11-10 22:00] VITALS: BP 129/70
[2022-11-11] MEDS: SODIUM CHLOR 0.9% PF (SALINE LOCK) 10ML VIAL/SYR IV SCH ×4 (00:26→22:00)
[2022-11-11] MEDS: LACTULOSE 20Gm/30ML SOLN PO SCH ×4 (00:27→18:14)
[2022-11-11 05:00] VITALS: BP 118/62
[2022-11-11 06:14] LABS: Hemoglobin 11.4 g/dL (12.2-16.2)
[2022-11-11 06:20] LABS: Hematocrit 34.2 % (36.0-46.0); Mean Corpuscular Hemoglobin 33.2 pg (28.0-32.0); Mean Corpuscular Hgb Conc. 33.3 g/dL (32.0-36.0); Mean Corpuscular Volume 99.7 fL (80.0-100.0); Red Blood Cells 3.43 10^6/uL (4.0-5.20); Red Cell Distribution Width 17.8 % (11.8-14.3); White Blood Cell 4.3 10^3/uL (4.4-10.8)
[2022-11-11 06:38] LABS: Band Neutrophils % (manual) 0; Basophils % (manual) 0 (0.0-2.0); Blast Cells 0; Eosinophils % (manual) 0 (0-7); Metamyelocytes % 0; Myelocytes % 0; Promyelocytes % 0; Reactive Lymphocytes 0
[2022-11-11 06:43] LABS: Potassium 4.3 mmol/L (3.5-5.1)
[2022-11-11 06:56] LABS: BUN/Creatinine Ratio 13.6; Bilirubin, Total 2.2 mg/dL (0.2-1.0); Calcium 7.9 mg/dL (8.5-10.1); Total Protein 5.2 g/dL (6.4-8.2)
[2022-11-11] MEDS: HYDROcodone-ACET 5/325MG TAB PO PRN ×2 (07:01→15:01)
[2022-11-11 09:00] VITALS: BP 150/71
[2022-11-11] MEDS: SPIRONOLACTONE 25 MG TAB PO SCH (09:15)
[2022-11-11] MEDS: FAMOTIDINE (10MG/ML) 2ML VL IV SCH (09:15)
[2022-11-11 09:51] LABS: Lymphocytes % (manual) 25 (10.0-50.0); Monocytes % (manual) 21 (0-12)
[2022-11-11 13:00] VITALS: BP 95/137
[2022-11-11 17:00] VITALS: BP 131/70
[2022-11-11 22:00] VITALS: BP 100/53
[2022-11-12 04:52] VITALS: BP 119/58
[2022-11-12] MEDS: SODIUM CHLOR 0.9% PF (SALINE LOCK) 10ML VIAL/SYR IV SCH (05:29)
[2022-11-12] MEDS: LACTULOSE 20Gm/30ML SOLN PO SCH ×3 (06:07→12:42)
[2022-11-12 08:15] VITALS: BP 135/58
[2022-11-12 08:20] VITALS: BP 123/59
[2022-11-12] MEDS: SPIRONOLACTONE 25 MG TAB PO SCH (09:19)
[2022-11-12] MEDS: FAMOTIDINE (10MG/ML) 2ML VL IV SCH (09:19)
[2022-11-12 12:25] VITALS: BP 135/58
[2022-11-12] MEDS ORDERED: CIPR-173 PO (13:06)
[2022-11-12 15:10] VITALS: BP 135/58
== END 2022-11-12 16:46 | disposition home or self-care (01) | DRG 441 ==
LOC: EDBD 17:18 → ER 17:26 → OVERFLOW 11-10 00:54 → EAST 11-10 12:15 → WEST WING 11-10 12:46
PROVIDERS: ADMIT Nurse Practitioner Family; ATTEND Family Medicine
DX: K76.82 Hepatic encephalopathy (principal); G93.41 Metabolic encephalopathy; E87.0 Hyperosmolality and hypernatremia; E87.1 Hypo-osmolality and hyponatremia; J96.10 Chronic respiratory failure, unspecified whether with hypoxia or hypercapnia; N39.0 Urinary tract infection, site not specified; D69.6 Thrombocytopenia, unspecified; E88.09 Other disorders of plasma-protein metabolism, not elsewhere classified; N18.9 Chronic kidney disease, unspecified; Z20.822 Contact with and (suspected) exposure to COVID-19; I12.9 Hypertensive chronic kidney disease with stage 1 through stage 4 chronic kidney disease, or unspecified chronic kidney disease; J44.9 Chronic obstructive pulmonary disease, unspecified; Z82.0 Family history of epilepsy and other diseases of the nervous system; Z82.49 Family history of ischemic heart disease and other diseases of the circulatory system; Z87.891 Personal history of nicotine dependence; Z99.81 Dependence on supplemental oxygen; Z86.19 Personal history of other infectious and parasitic diseases; Z90.49 Acquired absence of other specified parts of digestive tract; K70.30 Alcoholic cirrhosis of liver without ascites
CPT/HCPCS: 36415; 71045; 80053; 80320; 81001; 82140; 85007; 85025; 85027; 85610; 87340; 87426; 93005; 96365; G0378; J3490; P9047

== ENCOUNTER 2022-12-15 08:56 | Inpatient (IN) | payer OTHER, MEDICAID ==
[~2022-12-15] VITALS: Ht 160 cm; Wt 70.7 kg
[~2022-12-15 08:56] MED LIST changes: +CIPR-173 PO
[2022-12-15 11:34] LABS: Urine Bacteria NONE SEEN /hpf (None Seen); Urine Blood Negative /uL (Negative); Urine Hyaline Cast FEW /lpf (0 - 2); Urine Mucus FEW (None Seen); Urine Specific Gravity 1.024 (1.001-1.035); Urine WBC 4 /hpf (0 - 5)
[2022-12-15 11:49] LABS: Basophils # (auto) 0 10 ^3/uL (0-0.2); Basophils % (auto) 0.3 % (0.0-2.0); Eosinophils # (auto) 0 10 ^3/uL (0-0.8); Eosinophils % (auto) 0.3 % (0.0-7.0); Hematocrit 39.6 % (36.0-46.0); Lymphocytes # (auto) 1.4 10 ^3/uL (0.4-5.4); Lymphocytes % (auto) 10.8 % (10.0-50.0); Mean Corpuscular Hemoglobin 31.6 pg (28.0-32.0); Mean Corpuscular Hgb Conc. 32.8 g/dL (32.0-36.0); Mean Corpuscular Volume 96.3 fL (80.0-100.0); Monocytes # (auto) 1.7 10 ^3/uL (0-1.3); Neutrophils % (auto) 75.6 % (37.0-80.0); Nucleated Red Blood Cells % 0.1 %; Red Blood Cells 4.11 10^6/uL (4.0-5.20); Red Cell Distribution Width 15.7 % (11.8-14.3); White Blood Cell 13.3 10^3/uL (4.4-10.8)
[2022-12-15 12:05] LABS: INR 1.84 (0.9-1.15)
[2022-12-15 12:15] LABS: Albumin 2.3 g/dL (3.4-5.0); BUN/Creatinine Ratio 9.6; Calcium 8.2 mg/dL (8.5-10.1); Magnesium 1.8 mg/dL (1.6-2.6); Potassium 4.3 mmol/L (3.5-5.1)
[2022-12-15 12:34] LABS: Bilirubin, Total 2.1 mg/dL (0.2-1.0); Total Protein 6.3 g/dL (6.4-8.2)
[2022-12-15] MEDS ORDERED: LACTULOSE 20Gm/30ML SOLN PO ONE (14:00)
[2022-12-15] MEDS ORDERED: FUROSEMIDE 20 MG/2 ML VIAL IV ONE (15:00)
[2022-12-15] MEDS ORDERED: HYDROcodone-ACET 5/325MG TAB PO ONE (18:45)
[2022-12-15] MEDS: LACTULOSE 20Gm/30ML SOLN PO SCH (23:30)
[2022-12-15] MEDS: METOPROLOL TARTRATE 25 MG TAB PO SCH (23:33)
[2022-12-15] MEDS: ACETAMINOPHEN/CODEINE#3 (300/30mg) TAB PO SCH (23:34)
[2022-12-16 04:51] LABS: Hemoglobin 11.7 g/dL (12.2-16.2)
[2022-12-16 04:52] LABS: Hematocrit 34.7 % (36.0-46.0); Mean Corpuscular Hgb Conc. 33.7 g/dL (32.0-36.0); Mean Corpuscular Volume 100.8 fL (80.0-100.0); Red Blood Cells 3.44 10^6/uL (4.0-5.20); Red Cell Distribution Width 15.9 % (11.8-14.3); White Blood Cell 7.7 10^3/uL (4.4-10.8)
[2022-12-16 04:59] LABS: Basophils % (manual) 0 (0.0-2.0); Blast Cells 0; Myelocytes % 0; Promyelocytes % 0; Reactive Lymphocytes 0
[2022-12-16 05:40] LABS: Potassium 3.7 mmol/L (3.5-5.1)
[2022-12-16 05:44] LABS: Band Neutrophils % (manual) 3; Eosinophils % (manual) 4 (0-7); Lymphocytes % (manual) 39 (10.0-50.0); Metamyelocytes % 1; Monocytes % (manual) 5 (0-12)
[2022-12-16 05:50] LABS: Albumin 1.7 g/dL (3.4-5.0); BUN/Creatinine Ratio 9.8; Calcium 7.8 mg/dL (8.5-10.1)
[2022-12-16 06:11] LABS: Bilirubin, Total 1.8 mg/dL (0.2-1.0); Total Protein 5.2 g/dL (6.4-8.2)
[2022-12-16] MEDS: PATIENTS OWN MEDICATION RIGHTEYE SCH ×6 (08:12→21:41)
[2022-12-16] MEDS ORDERED: LACTULOSE 20Gm/30ML SOLN PO PRN (09:30)
[2022-12-16] MEDS ORDERED: ALBUTEROL SULF 2.5 MG/0.5ML(0.5%) NEB SOLN NEB PRN (09:30)
[2022-12-16] MEDS: ACETAMINOPHEN/CODEINE#3 (300/30mg) TAB PO SCH (09:55)
[2022-12-16] MEDS: amLODIPine BESYLATE 5 MG TAB PO SCH (09:58)
[2022-12-16] MEDS: METOPROLOL TARTRATE 25 MG TAB PO SCH ×2 (09:58→21:38)
[2022-12-16] MEDS ORDERED: ENOXAPARIN SOD 40 MG/0.4 ML SYRINGE SC SCH (10:00)
[2022-12-16] MEDS: AMIODARONE HCL 200 MG TAB PO SCH (10:00)
[2022-12-16] MEDS: LACTULOSE 20Gm/30ML SOLN PO SCH ×2 (10:01→21:37)
[2022-12-16] MEDS ORDERED: HYDROcodone-ACET 5/325MG TAB PO PRN (10:15)
[2022-12-16] MEDS: CHOLECALCIFEROL (VITD3) 2,000 UNIT CAP/TAB PO SCH (10:16)
[2022-12-16] MEDS: HYDROcodone-ACET 5/325MG TAB PO PRN ×3 (11:11→21:12)
[2022-12-16] MEDS: FUROSEMIDE 20 MG/2 ML VIAL IV SCH (11:11)
[2022-12-16] MEDS: cefTRIAXone 1GM/50ML D5W 50 ML IV SCH ×2 (11:11→21:11)
[2022-12-16] MEDS: IPRATROPIUM BROM 0.5 MG/2.5ML INH SOL NEB SCH ×3 (12:00→22:35)
[2022-12-16] MEDS: ALBUTEROL SULF 2.5 MG/0.5ML(0.5%) NEB SOLN NEB SCH ×3 (12:00→22:35)
[2022-12-16] MEDS ORDERED: PANTOPRAZOLE 40 MG TAB PO ONE (12:00)
[2022-12-16 12:37] LABS: Hematocrit 39.5 % (36.0-46.0); Hemoglobin 13.1 g/dL (12.2-16.2)
[2022-12-16 13:31] VITALS: BP 121/61
[2022-12-16] MEDS: AZITHROMYCIN 500MG/ 250ML 250 ML IV SCH (15:51)
[2022-12-16 16:34] VITALS: BP 109/55
[2022-12-16 18:20] LABS: Hematocrit 37.3 % (36.0-46.0); Hemoglobin 12.5 g/dL (12.2-16.2)
[2022-12-16] MEDS: PANTOPRAZOLE 40 MG TAB PO SCH (21:38)
[2022-12-16 21:56] VITALS: BP 100/44
[2022-12-16 23:59] LABS: Hematocrit 34.4 % (36.0-46.0)
[2022-12-17] VITALS (7 sets, daily range): BP systolic 94–125; BP diastolic 44–63
[2022-12-17] MEDS: HYDROcodone-ACET 5/325MG TAB PO PRN ×3 (00:20→18:51)
[2022-12-17] MEDS: IPRATROPIUM BROM 0.5 MG/2.5ML INH SOL NEB SCH ×3 (06:00→18:31)
[2022-12-17] MEDS: ALBUTEROL SULF 2.5 MG/0.5ML(0.5%) NEB SOLN NEB SCH ×3 (06:00→18:30)
[2022-12-17 06:16] LABS: INR 1.9 (0.9-1.15); Partial Thromboplastin Time 43.3 sec (24.6-33.4)
[2022-12-17 06:19] LABS: Basophils # (auto) 0.1 10 ^3/uL (0-0.2); Eosinophils # (auto) 0.2 10 ^3/uL (0-0.8); Hemoglobin 11.6 g/dL (12.2-16.2); White Blood Cell 5.7 10^3/uL (4.4-10.8)
[2022-12-17 06:35] LABS: Calcium 7.7 mg/dL (8.5-10.1); Potassium 3.9 mmol/L (3.5-5.1)
[2022-12-17 06:36] LABS: Basophils % (auto) 1.4 % (0.0-2.0); Eosinophils % (auto) 4.2 % (0.0-7.0); Hematocrit 33.5 % (36.0-46.0); Lymphocytes # (auto) 1.1 10 ^3/uL (0.4-5.4); Lymphocytes % (auto) 19.1 % (10.0-50.0); Mean Corpuscular Hemoglobin 33.2 pg (28.0-32.0); Mean Corpuscular Hgb Conc. 34.6 g/dL (32.0-36.0); Mean Corpuscular Volume 96.1 fL (80.0-100.0); Monocytes % (auto) 17.9 % (0.0-12.0); Neutrophils # (auto) 3.3 10 ^3/uL (1.6-8.6); Neutrophils % (auto) 57.4 % (37.0-80.0); Nucleated Red Blood Cells % 0.1 %; Red Blood Cells 3.49 10^6/uL (4.0-5.20); Red Cell Distribution Width 15.4 % (11.8-14.3)
[2022-12-17 06:38] LABS: Albumin 1.8 g/dL (3.4-5.0); BUN/Creatinine Ratio 9.9
[2022-12-17 06:41] LABS: Bilirubin, Total 2.1 mg/dL (0.2-1.0); Total Protein 5.2 g/dL (6.4-8.2)
[2022-12-17] MEDS: CHOLECALCIFEROL (VITD3) 2,000 UNIT CAP/TAB PO SCH (09:30)
[2022-12-17] MEDS: AZITHROMYCIN 500MG/ 250ML 250 ML IV SCH (09:30)
[2022-12-17] MEDS: PANTOPRAZOLE 40 MG TAB PO SCH ×2 (09:31→21:47)
[2022-12-17] MEDS: LACTULOSE 20Gm/30ML SOLN PO SCH ×2 (09:32→21:46)
[2022-12-17] MEDS: METOPROLOL TARTRATE 25 MG TAB PO SCH ×2 (09:36→21:47)
[2022-12-17] MEDS: FUROSEMIDE 20 MG/2 ML VIAL IV SCH (09:36)
[2022-12-17] MEDS: AMIODARONE HCL 200 MG TAB PO SCH (09:38)
[2022-12-17] MEDS: amLODIPine BESYLATE 5 MG TAB PO SCH (09:47)
[2022-12-17 10:31] LABS: Urine Bacteria NONE SEEN /hpf (None Seen); Urine Blood Negative /uL (Negative); Urine Hyaline Cast MOD /lpf (0 - 2); Urine Mucus FEW (None Seen); Urine Specific Gravity 1.023 (1.001-1.035); Urine WBC 15 /hpf (0 - 5)
[2022-12-17] MEDS: PATIENTS OWN MEDICATION RIGHTEYE SCH ×3 (12:00→22:00)
[2022-12-17] MEDS ORDERED: ONDANSETRON HCL 4 MG/2 ML VIAL IV PRN (15:45)
[2022-12-18] VITALS (8 sets, daily range): BP systolic 95–129; BP diastolic 41–65
[2022-12-18] MEDS: HYDROcodone-ACET 5/325MG TAB PO PRN ×2 (00:26→18:45)
[2022-12-18] MEDS: ALBUTEROL SULF 2.5 MG/0.5ML(0.5%) NEB SOLN NEB SCH ×4 (06:00→19:41)
[2022-12-18] MEDS: IPRATROPIUM BROM 0.5 MG/2.5ML INH SOL NEB SCH ×4 (06:00→19:41)
[2022-12-18] MEDS: PATIENTS OWN MEDICATION RIGHTEYE SCH ×4 (06:00→21:49)
[2022-12-18 06:15] LABS: Hematocrit 34.5 % (36.0-46.0); Hemoglobin 11.6 g/dL (12.2-16.2); Mean Corpuscular Hemoglobin 33.9 pg (28.0-32.0); Mean Corpuscular Hgb Conc. 33.5 g/dL (32.0-36.0); Mean Corpuscular Volume 101.2 fL (80.0-100.0); Red Blood Cells 3.41 10^6/uL (4.0-5.20); Red Cell Distribution Width 15.8 % (11.8-14.3); White Blood Cell 5.4 10^3/uL (4.4-10.8)
[2022-12-18 06:21] LABS: Basophils % (manual) 0 (0.0-2.0); Blast Cells 0; Metamyelocytes % 0; Myelocytes % 0; Promyelocytes % 0; Reactive Lymphocytes 0
[2022-12-18 06:23] LABS: Calcium 7.7 mg/dL (8.5-10.1); Potassium 3.9 mmol/L (3.5-5.1)
[2022-12-18 06:26] LABS: BUN/Creatinine Ratio 13.5
[2022-12-18 07:57] LABS: Band Neutrophils % (manual) 15; Eosinophils % (manual) 6 (0-7); Lymphocytes % (manual) 30 (10.0-50.0); Monocytes % (manual) 19 (0-12)
[2022-12-18] MEDS ORDERED: FLUMAZENIL 0.1 MG/ML INJ 10ML MDV IV ONE (08:10)
[2022-12-18] MEDS ORDERED: NALOXONE HCL 0.4 MG/ML VIAL ONE (08:10)
[2022-12-18] MEDS ORDERED: LIDOCAINE VISCOUS 2% 15ML UD ONE (08:10)
[2022-12-18] MEDS: cefTRIAXone 1GM/50ML D5W 50 ML IV SCH (08:47)
[2022-12-18] MEDS: LACTULOSE 20Gm/30ML SOLN PO SCH ×2 (09:04→21:39)
[2022-12-18] MEDS: AMIODARONE HCL 200 MG TAB PO SCH (09:04)
[2022-12-18] MEDS: PANTOPRAZOLE 40 MG TAB PO SCH ×2 (09:05→21:40)
[2022-12-18] MEDS: CHOLECALCIFEROL (VITD3) 2,000 UNIT CAP/TAB PO SCH (09:05)
[2022-12-18] MEDS: AZITHROMYCIN 250 MG TAB PO SCH (09:05)
[2022-12-18] MEDS: METOPROLOL TARTRATE 25 MG TAB PO SCH ×2 (09:30→21:40)
[2022-12-18] MEDS: fentaNYL CITRATE 100 MCG/2 ML VL ONE ×2 (10:39→10:42)
[2022-12-18] MEDS: MIDAZOLAM HCL 2MG/2ML 2ml VIAL (1mg/ml) ONE ×3 (10:39→10:48)
[2022-12-18] MEDS: diphenhdrAMINE HCL 50 MG/1 ML VL ONE ×2 (10:39→10:42)
[2022-12-18] MEDS: SUCRALFATE 1 GM/10 ML ORAL SUSP PO SCH (18:45)
[2022-12-19 05:00] VITALS: BP 96/50
[2022-12-19] MEDS: PATIENTS OWN MEDICATION RIGHTEYE SCH (06:00)
[2022-12-19] MEDS: IPRATROPIUM BROM 0.5 MG/2.5ML INH SOL NEB SCH ×3 (06:03→13:05)
[2022-12-19] MEDS: ALBUTEROL SULF 2.5 MG/0.5ML(0.5%) NEB SOLN NEB SCH ×3 (06:03→13:05)
[2022-12-19 06:26] LABS: Basophils # (auto) 0 10 ^3/uL (0-0.2); Eosinophils # (auto) 0.3 10 ^3/uL (0-0.8); Eosinophils % (auto) 6.8 % (0.0-7.0); Lymphocytes # (auto) 1.2 10 ^3/uL (0.4-5.4); Lymphocytes % (auto) 27.2 % (10.0-50.0); White Blood Cell 4.2 10^3/uL (4.4-10.8)
[2022-12-19 06:31] LABS: Hematocrit 31.3 % (36.0-46.0); Hemoglobin 10.6 g/dL (12.2-16.2); Mean Corpuscular Hemoglobin 32.7 pg (28.0-32.0); Mean Corpuscular Hgb Conc. 33.9 g/dL (32.0-36.0); Mean Corpuscular Volume 96.5 fL (80.0-100.0); Monocytes # (auto) 0.8 10 ^3/uL (0-1.3); Monocytes % (auto) 17.8 % (0.0-12.0); Neutrophils % (auto) 47.2 % (37.0-80.0); Nucleated Red Blood Cells % 0.4 %; Red Blood Cells 3.25 10^6/uL (4.0-5.20); Red Cell Distribution Width 15.2 % (11.8-14.3)
[2022-12-19] MEDS: SUCRALFATE 1 GM/10 ML ORAL SUSP PO SCH (06:36)
[2022-12-19 06:40] LABS: Calcium 7.5 mg/dL (8.5-10.1); Potassium 4.2 mmol/L (3.5-5.1)
[2022-12-19] MEDS: HYDROcodone-ACET 5/325MG TAB PO PRN ×2 (06:40→12:39)
[2022-12-19 06:42] LABS: BUN/Creatinine Ratio 14.4
[2022-12-19 08:00] VITALS: BP 99/49
[2022-12-19] MEDS: cefTRIAXone 1GM/50ML D5W 50 ML IV SCH (08:57)
[2022-12-19] MEDS: LACTULOSE 20Gm/30ML SOLN PO SCH (08:57)
[2022-12-19 09:00] VITALS: BP 99/49
[2022-12-19] MEDS: METOPROLOL TARTRATE 25 MG TAB PO SCH (09:47)
[2022-12-19] MEDS: AZITHROMYCIN 250 MG TAB PO SCH (09:48)
[2022-12-19] MEDS: CHOLECALCIFEROL (VITD3) 2,000 UNIT CAP/TAB PO SCH (09:48)
[2022-12-19] MEDS: AMIODARONE HCL 200 MG TAB PO SCH (09:48)
[2022-12-19] MEDS: PANTOPRAZOLE 40 MG TAB PO SCH (09:48)
[2022-12-19] MEDS ORDERED: SUCR1SUS10 PO (10:31)
[2022-12-19] MEDS ORDERED: PANT40T PO (10:31)
[2022-12-19] MEDS ORDERED: HYDR1TAB97 PO (10:31)
[2022-12-19 12:15] VITALS: BP 99/49
== END 2022-12-19 13:50 | disposition home or self-care (01) | DRG 391 ==
LOC: ER 08:56 → OVERFLOW 14:50 → CENTRAL 12-16 12:59
PROVIDERS: ADMIT Nurse Practitioner Family; ATTEND Internal Medicine
PROC: 0DB68ZX Excision of Stomach, Via Natural or Artificial Opening Endoscopic, Diagnostic (ICD-10-PCS; 2022-12-18)
PROC: 0D758ZZ Dilation of Esophagus, Via Natural or Artificial Opening Endoscopic (ICD-10-PCS; 2022-12-18)
PROC: 0DB98ZX Excision of Duodenum, Via Natural or Artificial Opening Endoscopic, Diagnostic (ICD-10-PCS; principal; 2022-12-18 10:32)
DX: K29.70 Gastritis, unspecified, without bleeding (principal); E43 Unspecified severe protein-calorie malnutrition; D68.9 Coagulation defect, unspecified; J96.10 Chronic respiratory failure, unspecified whether with hypoxia or hypercapnia; K70.30 Alcoholic cirrhosis of liver without ascites; K44.9 Diaphragmatic hernia without obstruction or gangrene; D53.9 Nutritional anemia, unspecified; D69.6 Thrombocytopenia, unspecified; I12.9 Hypertensive chronic kidney disease with stage 1 through stage 4 chronic kidney disease, or unspecified chronic kidney disease; N18.30 Chronic kidney disease, stage 3 unspecified; Z20.822 Contact with and (suspected) exposure to COVID-19; R13.12 Dysphagia, oropharyngeal phase; Z68.27 Body mass index [BMI] 27.0-27.9, adult; F10.10 Alcohol abuse, uncomplicated; K76.82 Hepatic encephalopathy; G89.4 Chronic pain syndrome; J44.9 Chronic obstructive pulmonary disease, unspecified; K31.9 Disease of stomach and duodenum, unspecified; Z79.899 Other long term (current) drug therapy; Z87.891 Personal history of nicotine dependence; Z90.49 Acquired absence of other specified parts of digestive tract
CPT/HCPCS: 36415; 43239; 71045; 71046; 80048; 80053; 81001; 82140; 83690; 83735; 83880; 84443; 84484; 85007; 85014; 85018; 85025; 85027; 85610; 85730; 86850; 86900; 86901; 87040; 87086; 87426; 93005; 94640; 96365; 96375; 96376; G0378; J0696; J2250

== ENCOUNTER 2023-05-13 08:42 | Inpatient (IN) | payer OTHER, MEDICAID ==
[~2023-05-13] VITALS: Ht 160 cm; Wt 59.4 kg
[~2023-05-13 08:42] MED LIST changes: -AMLO-489 PO; +AMLO1TAB22 PO; +HYDR1TAB97 PO; +PANT40T PO; +SUCR1SUS26 PO
[2023-05-13] MEDS ORDERED: SODIUM CHLORIDE 0.9% 1,000 ML IV ONE (09:00)
[2023-05-13 09:14] LABS: Basophils # (auto) 0.1 10 ^3/uL (0-0.2); Basophils % (auto) 1.4 % (0.0-2.0); Eosinophils # (auto) 0.2 10 ^3/uL (0-0.8); Eosinophils % (auto) 3.8 % (0.0-7.0); Hematocrit 42.6 % (36.0-46.0); Hemoglobin 13.9 g/dL (12.2-16.2); Lymphocytes # (auto) 1.5 10 ^3/uL (0.4-5.4); Lymphocytes % (auto) 27.9 % (10.0-50.0); Mean Corpuscular Hemoglobin 31.9 pg (28.0-32.0); Mean Corpuscular Hgb Conc. 32.6 g/dL (32.0-36.0); Mean Corpuscular Volume 97.9 fL (80.0-100.0); Monocytes # (auto) 0.9 10 ^3/uL (0-1.3); Monocytes % (auto) 15.9 % (0.0-12.0); Neutrophils # (auto) 2.8 10 ^3/uL (1.6-8.6); Nucleated Red Blood Cells % 0.5 %; Red Blood Cells 4.35 10^6/uL (4.0-5.20); Red Cell Distribution Width 17.2 % (11.8-14.3); White Blood Cell 5.4 10^3/uL (4.4-10.8)
[2023-05-13 09:30] LABS: Albumin 2.4 g/dL (3.4-5.0); Calcium 8.4 mg/dL (8.5-10.1); Potassium 4.8 mmol/L (3.5-5.1)
[2023-05-13 09:34] LABS: BUN/Creatinine Ratio 10.1 (10.0-20.0); Bilirubin, Total 2.8 mg/dL (0.2-1.0); Total Protein 6.3 g/dL (6.4-8.2)
[2023-05-13 10:00] VITALS: PULSE 50; RESP 17; O2SAT 99
[2023-05-13 11:57] LABS: RBC Morphology Normal
[2023-05-13 12:14] LABS: Platelet Estimate Decreased
[2023-05-13] MEDS ORDERED: LACTULOSE 20Gm/30ML SOLN PO ONE (14:30)
[2023-05-13] MEDS ORDERED: amLODIPine BESYLATE 5 MG TAB PO ONE (14:30)
[2023-05-13] MEDS ORDERED: PANTOPRAZOLE 40 MG TAB PO ONE (14:30)
[2023-05-13] MEDS ORDERED: ALBUMIN 25% 50 ML IV ONE (14:45)
[2023-05-13] MEDS ORDERED: ALBUMIN 5% 50 ML IV ONE (14:45)
[2023-05-13] MEDS ORDERED: ALBUTEROL SULF 2.5 MG/0.5ML(0.5%) NEB SOLN NEB PRN (14:45)
[2023-05-13 15:30] LABS: INR 1.7 (0.9-1.15); Partial Thromboplastin Time 31.5 SEC (24.5-34.5); Prothrombin Time 17.2 sec (9.3-11.8)
[2023-05-13 17:43] VITALS: BP 116/59; PULSE 50; RESP 18; TEMP 97.9; O2SAT 99
[2023-05-13 18:41] VITALS: PULSE 50; RESP 18; O2SAT 98
[2023-05-13 18:51] VITALS: PULSE 51; RESP 18; O2SAT 99
[2023-05-13 19:30] VITALS: PULSE 56; RESP 15; O2SAT 95
[2023-05-13] MEDS ORDERED: traMADol HCL 50 MG TAB PO PRN (21:15)
[2023-05-14 00:16] LABS: Urine Bacteria NONE SEEN /hpf (None Seen); Urine Blood Negative /uL (Negative); Urine Clarity Clear (Clear); Urine Color Yellow (Yellow); Urine Hyaline Cast FEW /lpf (0 - 2); Urine Mucus FEW (None Seen); Urine Protein, UAD Negative (Negative); Urine Specific Gravity 1.019 (1.001-1.035); Urine Urobilinogen Normal (Negative); Urine WBC 2 /hpf (0 - 5); Urine pH 5.5 (5.0-8.0)
[2023-05-14 05:19] LABS: Hematocrit 33.2 % (36.0-46.0); Hemoglobin 11.1 g/dL (12.2-16.2); Mean Corpuscular Hemoglobin 32.1 pg (28.0-32.0); Mean Corpuscular Hgb Conc. 33.5 g/dL (32.0-36.0); Red Blood Cells 3.47 10^6/uL (4.0-5.20); White Blood Cell 5.9 10^3/uL (4.4-10.8)
[2023-05-14 05:23] LABS: Mean Corpuscular Volume 95.8 fL (80.0-100.0); Red Cell Distribution Width 17.2 % (11.8-14.3)
[2023-05-14 05:34] LABS: Albumin 1.8 g/dL (3.4-5.0); Calcium 7.6 mg/dL (8.5-10.1); Potassium 4.2 mmol/L (3.5-5.1)
[2023-05-14 05:37] LABS: BUN/Creatinine Ratio 12.8 (10.0-20.0); Bilirubin, Total 1.6 mg/dL (0.2-1.0)
[2023-05-14 06:15] LABS: Band Neutrophils % (manual) 0; Basophils % (manual) 0 (0.0-2.0); Blast Cells 0; Metamyelocytes % 0; Myelocytes % 0; Promyelocytes % 0; Reactive Lymphocytes 0
[2023-05-14 08:07] VITALS: O2SAT 100
[2023-05-14 08:39] LABS: Eosinophils % (manual) 3 (0-7); Lymphocytes % (manual) 27 (10.0-50.0); Monocytes % (manual) 25 (0-12)
[2023-05-14 08:42] LABS: Platelet Estimate Decreased
[2023-05-14 08:43] LABS: Anisocytosis Slight
[2023-05-14 09:34] VITALS: PULSE 50; RESP 15; O2SAT 99
[2023-05-14] MEDS ORDERED: PANTOPRAZOLE 40 MG/10 ML VIAL INJ IV SCH (10:00)
[2023-05-14] MEDS ORDERED: CHOLECALCIFEROL (VITD3) 2,000 UNIT CAP/TAB PO SCH (10:00)
[2023-05-14] MEDS ORDERED: amLODIPine BESYLATE 5 MG TAB PO SCH (10:00)
[2023-05-14] MEDS ORDERED: METOPROLOL SUCCINATE XL 50 MG TAB PO SCH (10:00)
[2023-05-14] MEDS ORDERED: LACTULOSE 20Gm/30ML SOLN PO SCH (10:00)
[2023-05-14 16:00] VITALS: BP 112/71; PULSE 50; RESP 17; TEMP 98
[2023-05-14 18:30] VITALS: O2SAT 100
== END 2023-05-15 16:30 | disposition home or self-care (01) | DRG 433 ==
LOC: ER 08:42 → TELE 15:34
PROVIDERS: ADMIT Internal Medicine; ATTEND Student in an Organized Health Care Education/Training Program
DX: K70.30 Alcoholic cirrhosis of liver without ascites (principal); E44.0 Moderate protein-calorie malnutrition; E72.4 Disorders of ornithine metabolism; N17.9 Acute kidney failure, unspecified; R00.1 Bradycardia, unspecified; I48.0 Paroxysmal atrial fibrillation; N18.30 Chronic kidney disease, stage 3 unspecified; I12.9 Hypertensive chronic kidney disease with stage 1 through stage 4 chronic kidney disease, or unspecified chronic kidney disease; D69.6 Thrombocytopenia, unspecified; B19.20 Unspecified viral hepatitis C without hepatic coma; F19.90 Other psychoactive substance use, unspecified, uncomplicated; J44.9 Chronic obstructive pulmonary disease, unspecified; K76.89 Other specified diseases of liver; E88.09 Other disorders of plasma-protein metabolism, not elsewhere classified; K76.0 Fatty (change of) liver, not elsewhere classified; N28.1 Cyst of kidney, acquired; R13.10 Dysphagia, unspecified; F10.10 Alcohol abuse, uncomplicated; Y90.9 Presence of alcohol in blood, level not specified; Z86.19 Personal history of other infectious and parasitic diseases; Z90.49 Acquired absence of other specified parts of digestive tract; Z82.49 Family history of ischemic heart disease and other diseases of the circulatory system; Z99.81 Dependence on supplemental oxygen; Z68.23 Body mass index [BMI] 23.0-23.9, adult
CPT/HCPCS: 36415; 70450; 71045; 76700; 80053; 81001; 82105; 82140; 84439; 84443; 84484; 85007; 85025; 85027; 85610; 85730; 93005; 93306; 94640; 96361; 96365; C9113; G0378

== ENCOUNTER 2023-10-03 12:04 | Inpatient (IN) | payer OTHER, MEDICAID ==
[2023-10-03] VITALS (9 sets, daily range): BP systolic 126; BP diastolic 68; PULSE 66–75; RESP 16–18; TEMP 97.9; O2SAT 86–98
[~2023-10-03] VITALS: Ht 160 cm; Wt 59.4 kg
[2023-10-03 13:40] LABS: Alanine Aminotransferase 40 U/L (7-40); Alkaline Phosphatase 159 U/L (46-116); Anion Gap 10 (5-15); Aspartate Aminotransferase 93 U/L (13-40); BUN/Creatinine Ratio 17.4 (10.0-20.0); Blood Urea Nitrogen 20 mg/dL (9-23); Calcium 8.4 mg/dL (8.5-10.1); Carbon Dioxide 22 mmol/L (20-30); Chloride 111 mmol/L (98-107); Glucose 64 mg/dL (74-106); Potassium 4.8 mmol/L (3.5-5.1); Sodium 143 mmol/L (136-145)
[2023-10-03 13:41] LABS: Albumin 2.7 g/dL (3.2-4.8); Basophils # (auto) 0 10 ^3/uL (0-0.2); Basophils % (auto) 0.4 % (0.0-2.0); Bilirubin, Total 4.9 mg/dL (0.2-1.0); Eosinophils # (auto) 0 10 ^3/uL (0-0.8); Eosinophils % (auto) 0.3 % (0.0-7.0); Hematocrit 40.6 % (36.0-46.0); Hemoglobin 13.2 g/dL (12.2-16.2); Lymphocytes # (auto) 1.4 10 ^3/uL (0.4-5.4); Lymphocytes % (auto) 12.8 % (10.0-50.0); Mean Corpuscular Hemoglobin 30.6 pg (28.0-32.0); Mean Corpuscular Hgb Conc. 32.5 g/dL (32.0-36.0); Mean Corpuscular Volume 93.9 fL (80.0-100.0); Monocytes % (auto) 9.3 % (0.0-12.0); Neutrophils # (auto) 8.3 10 ^3/uL (1.6-8.6); Neutrophils % (auto) 77.2 % (37.0-80.0); Nucleated Red Blood Cells % 0.4 %; Red Blood Cells 4.32 10^6/uL (4.0-5.20); Red Cell Distribution Width 17.7 % (11.8-14.3); Total Protein 6.2 g/dL (5.7-8.2); White Blood Cell 10.8 10^3/uL (4.4-10.8)
[2023-10-03 13:43] LABS: Lactic Acid w/Reflex 3.3 mmol/L (0.4-2.0)
[2023-10-03] MEDS ORDERED: FUROSEMIDE 40 MG/4 ML VIAL IV ONE (13:45)
[2023-10-03] MEDS ORDERED: DEXTROSE (50%) 50ML SYRG IV ONE (14:00)
[2023-10-03] MEDS ORDERED: cefTRIAXone 1GM/50ML D5W 50 ML IV ONE (14:00)
[2023-10-03] MEDS ORDERED: ASPirin 325 MG TAB PO ONE (14:30)
[2023-10-03] MEDS ORDERED: NITROGLYCERIN 0.4 MG SL TAB SL PRN (16:00)
[2023-10-03] MEDS ORDERED: ACETAMINOPHEN 325 MG TAB PO PRN (16:00)
[2023-10-03] MEDS ORDERED: MORPHINE SULFATE INJ 2 MG/ml SYRG IV PRN (16:00)
[2023-10-03] MEDS ORDERED: ONDANSETRON HCL 4 MG/2 ML VIAL IV PRN (16:00)
[2023-10-03] MEDS ORDERED: DOCUSATE SOD 100 MG CAP PO PRN (16:00)
[2023-10-03] MEDS ORDERED: LACT10SO3 PO (16:14)
[2023-10-03] MEDS ORDERED: ALBUMIN 25% 100 ML IV ONE (16:15)
[2023-10-03] MEDS: IPRATROPIUM BROM 0.5 MG/2.5ML INH SOL NEB SCH ×2 (19:40→22:04)
[2023-10-03] MEDS: ALBUTEROL SULF 2.5 MG/0.5ML(0.5%) NEB SOLN NEB SCH ×2 (19:40→22:04)
[2023-10-03] MEDS: LACTULOSE 20Gm/30ML SOLN PO SCH ×2 (19:45→22:00)
[2023-10-03] MEDS: FUROSEMIDE 20 MG/2 ML VIAL IV SCH (19:56)
[2023-10-03 22:15] LABS: COVID19 ANTIGEN SOFIA FIA NEGATIVE (NEGATIVE); Rapid Influenza A Negative (Negative); Rapid Influenza B Negative (Negative)
[2023-10-04] VITALS (19 sets, daily range): BP systolic 107–129; BP diastolic 46–65; PULSE 69–86; RESP 16–20; TEMP 98–98.4; O2SAT 93–100
[2023-10-04] MEDS: FUROSEMIDE 20 MG/2 ML VIAL IV SCH ×2 (05:28→18:42)
[2023-10-04] MEDS: LACTULOSE 20Gm/30ML SOLN PO SCH ×3 (05:28→21:15)
[2023-10-04] MEDS: IPRATROPIUM BROM 0.5 MG/2.5ML INH SOL NEB SCH ×5 (06:10→21:28)
[2023-10-04] MEDS: ALBUTEROL SULF 2.5 MG/0.5ML(0.5%) NEB SOLN NEB SCH ×5 (06:10→21:28)
[2023-10-04 06:28] LABS: Basophils # (auto) 0 10 ^3/uL (0-0.2); Basophils % (auto) 0.2 % (0.0-2.0); Eosinophils # (auto) 0.2 10 ^3/uL (0-0.8); Eosinophils % (auto) 1.7 % (0.0-7.0); Hemoglobin 11.1 g/dL (12.2-16.2)
[2023-10-04 06:29] LABS: Hematocrit 33.5 % (36.0-46.0); Lymphocytes # (auto) 1.4 10 ^3/uL (0.4-5.4); Lymphocytes % (auto) 14.9 % (10.0-50.0); Mean Corpuscular Hemoglobin 30.6 pg (28.0-32.0); Mean Corpuscular Volume 92.8 fL (80.0-100.0); Monocytes # (auto) 1.4 10 ^3/uL (0-1.3); Monocytes % (auto) 14.6 % (0.0-12.0); Neutrophils # (auto) 6.4 10 ^3/uL (1.6-8.6); Neutrophils % (auto) 68.6 % (37.0-80.0); Nucleated Red Blood Cells % 0.3 %; Red Blood Cells 3.61 10^6/uL (4.0-5.20); Red Cell Distribution Width 17.4 % (11.8-14.3); White Blood Cell 9.3 10^3/uL (4.4-10.8)
[2023-10-04 06:33] LABS: Alanine Aminotransferase 25 U/L (7-40); Albumin 2.5 g/dL (3.2-4.8); Alkaline Phosphatase 117 U/L (46-116); Anion Gap 6 (5-15); Aspartate Aminotransferase 63 U/L (13-40); BUN/Creatinine Ratio 13.1 (10.0-20.0); Blood Urea Nitrogen 14 mg/dL (9-23); Calcium 7.9 mg/dL (8.7-10.4); Carbon Dioxide 25 mmol/L (20-30); Chloride 112 mmol/L (98-107); Glucose 71 mg/dL (74-106); Potassium 4.2 mmol/L (3.5-5.1); Sodium 143 mmol/L (136-145)
[2023-10-04 06:34] LABS: Total Protein 5.4 g/dL (5.7-8.2)
[2023-10-04] MEDS: cefTRIAXone 1GM/50ML D5W 50 ML IV SCH (09:11)
[2023-10-04] MEDS: POTASSIUM CHL 20 Meq TABLET PO SCH (12:38)
[2023-10-04] MEDS: AZITHROMYCIN 500MG/ 250ML 250 ML IV SCH (12:38)
[2023-10-04] MEDS: PANTOPRAZOLE 40 MG TAB PO SCH (12:38)
[2023-10-04] MEDS: amLODIPine BESYLATE 5 MG TAB PO SCH (12:39)
[2023-10-04] MEDS: SPIRONOLACTONE 25 MG TAB PO SCH (12:39)
[2023-10-04] MEDS ORDERED: LORazepam 2MG/ML-1ML VIAL IV ONE (13:00)
[2023-10-04] MEDS ORDERED: PANTOPRAZOLE 40 MG TAB PO ONE (14:00)
[2023-10-04 20:39] LABS: Urine Bacteria NONE SEEN /hpf (None Seen); Urine Blood Negative /uL (Negative); Urine Clarity Clear (Clear); Urine Color Yellow (Yellow); Urine Protein, UAD Negative (Negative); Urine Specific Gravity 1.016 (1.001-1.035); Urine WBC 5 /hpf (0 - 5); Urine pH 5.5 (5.0-8.0)
[2023-10-04 20:51] LABS: Amphetamine Screen, Urine Neg (NEGATIVE); Barbiturate Scree,Urine Neg (NEGATIVE); Benzodiazephine Screen, Urine Neg (NEGATIVE); Cannabinoid Screen, Urine Neg (NEGATIVE); Cocaine Screen, Urine Neg (NEGATIVE); Opiate Scree,Urine Pos (NEGATIVE); Phencyclidine Screen, Urine Neg (NEGATIVE)
[2023-10-05] VITALS (9 sets, daily range): BP systolic 104–122; BP diastolic 54–63; PULSE 75–85; RESP 16–20; TEMP 37.2; O2SAT 90–100
[2023-10-05] MEDS: FUROSEMIDE 20 MG/2 ML VIAL IV SCH (05:24)
[2023-10-05 06:24] LABS: Alanine Aminotransferase 23 U/L (7-40); Albumin 2.3 g/dL (3.2-4.8); Alkaline Phosphatase 114 U/L (46-116); Anion Gap 8 (5-15); Aspartate Aminotransferase 64 U/L (13-40); BUN/Creatinine Ratio 13.8 (10.0-20.0); Blood Urea Nitrogen 15 mg/dL (9-23); Calcium 7.8 mg/dL (8.7-10.4); Carbon Dioxide 25 mmol/L (20-30); Chloride 110 mmol/L (98-107); Glucose 69 mg/dL (74-106); Sodium 143 mmol/L (136-145)
[2023-10-05 06:25] LABS: Bilirubin, Total 3.8 mg/dL (0.2-1.0); Total Protein 5.2 g/dL (5.7-8.2)
[2023-10-05] MEDS: ALBUTEROL SULF 2.5 MG/0.5ML(0.5%) NEB SOLN NEB SCH ×2 (06:42→09:21)
[2023-10-05] MEDS: IPRATROPIUM BROM 0.5 MG/2.5ML INH SOL NEB SCH ×2 (06:42→09:21)
[2023-10-05 06:55] LABS: Basophils # (auto) 0 10 ^3/uL (0-0.2); Hemoglobin 10.9 g/dL (12.2-16.2); Monocytes # (auto) 1.3 10 ^3/uL (0-1.3); White Blood Cell 7.1 10^3/uL (4.4-10.8)
[2023-10-05 06:56] LABS: INR 2.13 (0.9-1.15); Partial Thromboplastin Time 45.9 SEC (24.5-34.5); Prothrombin Time 21.3 sec (9.3-11.8)
[2023-10-05 06:58] LABS: Basophils % (auto) 0.3 % (0.0-2.0); Eosinophils # (auto) 0.1 10 ^3/uL (0-0.8); Hematocrit 33.1 % (36.0-46.0); Lymphocytes # (auto) 1.3 10 ^3/uL (0.4-5.4); Lymphocytes % (auto) 18.2 % (10.0-50.0); Mean Corpuscular Hemoglobin 30.3 pg (28.0-32.0); Mean Corpuscular Hgb Conc. 33.1 g/dL (32.0-36.0); Mean Corpuscular Volume 91.7 fL (80.0-100.0); Neutrophils # (auto) 4.3 10 ^3/uL (1.6-8.6); Neutrophils % (auto) 60.8 % (37.0-80.0); Nucleated Red Blood Cells % 0.1 %; Red Blood Cells 3.61 10^6/uL (4.0-5.20); Red Cell Distribution Width 16.7 % (11.8-14.3)
[2023-10-05 07:08] LABS: Monocytes % (auto) 18.7 % (0.0-12.0)
[2023-10-05] MEDS: LACTULOSE 20Gm/30ML SOLN PO SCH ×2 (09:31→10:00)
[2023-10-05] MEDS: POTASSIUM CHL 20 Meq TABLET PO SCH (09:31)
[2023-10-05] MEDS: PANTOPRAZOLE 40 MG TAB PO SCH (09:32)
[2023-10-05] MEDS: SPIRONOLACTONE 25 MG TAB PO SCH (09:32)
[2023-10-05] MEDS: amLODIPine BESYLATE 5 MG TAB PO SCH (09:33)
[2023-10-05] MEDS: cefTRIAXone 1GM/50ML D5W 50 ML IV SCH (09:33)
[2023-10-05] MEDS ORDERED: FURO1TAB31 PO (09:57)
[2023-10-05] MEDS ORDERED: AZIT500T66 PO (09:57)
[2023-10-05] MEDS ORDERED: PANTOPRAZOLE 40 MG TAB PO SCH (10:00)
[2023-10-05] MEDS ORDERED: AMIODARONE HCL 200 MG TAB PO SCH (10:00)
[2023-10-05] MEDS: AZITHROMYCIN 500MG/ 250ML 250 ML IV SCH (11:34)
== END 2023-10-05 14:54 | disposition home or self-care (01) | DRG 177 ==
LOC: ER 12:04 → TELE 16:08 → TELE-CENTR 23:11
PROVIDERS: ADMIT Nurse Practitioner Family; ATTEND Internal Medicine
DX: J15.69 Pneumonia due to other Gram-negative bacteria (principal); I21.A1 Myocardial infarction type 2; I50.33 Acute on chronic diastolic (congestive) heart failure; J96.21 Acute and chronic respiratory failure with hypoxia; I13.0 Hypertensive heart and chronic kidney disease with heart failure and stage 1 through stage 4 chronic kidney disease, or unspecified chronic kidney disease; J44.1 Chronic obstructive pulmonary disease with (acute) exacerbation; J44.0 Chronic obstructive pulmonary disease with (acute) lower respiratory infection; K86.2 Cyst of pancreas; N17.9 Acute kidney failure, unspecified; J15.9 Unspecified bacterial pneumonia; D69.6 Thrombocytopenia, unspecified; I48.91 Unspecified atrial fibrillation; K74.60 Unspecified cirrhosis of liver; B19.20 Unspecified viral hepatitis C without hepatic coma; Z60.2 Problems related to living alone; K83.8 Other specified diseases of biliary tract; N18.9 Chronic kidney disease, unspecified; Z79.899 Other long term (current) drug therapy; Z87.891 Personal history of nicotine dependence; Z90.49 Acquired absence of other specified parts of digestive tract
CPT/HCPCS: 36415; 71046; 74181; 76705; 78226; 80053; 80307; 81001; 82140; 83605; 83880; 84484; 85025; 85610; 85730; 87040; 87077; 87186; 87426; 87804; 93005; 94640; 97163; G0378; P9047

== ENCOUNTER 2025-08-19 09:41 | Inpatient (IN) | payer MEDICARE, MEDICAID ==
[~2025-08-19] VITALS: Ht 160 cm; Wt 65.3 kg
[2025-08-19] VITALS (21 sets, daily range): BP systolic 73–164; BP diastolic 40–94; PULSE 56–77; RESP 13–20; TEMP 96.4–98.2; O2SAT 96–99
[~2025-08-19 09:41] MED LIST changes: +AZIT500T66 PO; +FURO1TAB31 PO; +LACT10SO3 PO
--- NOTE | 2025-08-19 09:56 | ED.PDOC ---
HPI Comments This is a 75 year old female KAILEEA presenting to the ED with chief complaint of hypotension. EMS reports patient had visited her PCP's office today when she was found to have a BP of 60/40. EMS relays patient has been increasingly weak and tired since after taking her medications this morning, including a muscle relaxant. EMS states they provided about 150mL total so far of NS and her BP improved slightly to 67/41. Patient denies any chest pain, SOB, dizziness, N/V/D, abdominal pain, fever, or chills. Chief Complaint: Low Blood Pressure Time Seen by MD: 09:54 Primary Care Provider: FORTUNATO Reviewed Notes: Nurses Notes, Facility Mechanic Notes, Medications, Allergies Allergies: Coded Allergies: NO KNOWN ALLERGIES (Unverified , 12/17/19) Home Meds Active Scripts Azithromycin (Azithromycin) 500 Mg Tab, 1 TAB PO DAILY, #3 TAB Prov:ZEESHAN WALKER MD 10/05/23 Furosemide (Lasix) 40 Mg Tab, 40 MG PO QAM for 30 Days, #30 TAB 1 Refill Prov:ZEESHAN WALKER MD 10/05/23 Hydrocodone-Acetaminophen (Hydrocodone/Acetaminophen 5-325 mg) 1 Tab Tab, 1 TAB PO BIDP PRN for 5 Days, #10 TAB Prov:ZEESHAN WALKER MD 12/19/22 Sucralfate (CARAFATE SUSP) 1 Gm/10 Ml Ss, 1 GM PO BIDAC for 30 Days, #120 ML Prov:ZEESHAN WALKER MD 12/19/22 Pantoprazole Sodium Sesquihydr (Pantoprazole Sodium) 40 Mg Tab, 40 MG PO DAILY for 30 Days, #30 TAB 2 Refills Prov:ZEESHAN WALKER MD 12/19/22 Ciprofloxacin Hcl (Cipro) 500 Mg Tab, 1 TAB PO BID, #20 TAB Prov:BELINAD PRINCE MD 11/12/22 Lactulose (Lactulose) 10 Gm Cheng, 30 GM PO BID, #120 PACK Prov:BRIGITTE CALHOUN MD 07/04/22 Patients Own Medication (PATIENTS OWN MEDICATION) ., 1 DROP RIGHTEYE QID for 9 Days PTS OWN MED-OBTAIN FROM PT AND SEND TO RX DRUG: FREQ: RX# EXP: DATE DISP: TECH: RPH: Prov:BRIGITTE CALHOUN MD 07/04/22 Reported Medications Lactulose (Lactulose) 10 Gm/15 Ml Marisel, 30 ML PO QID 10/03/23 Prednisolone Acetate (Ophth) (Pred Forte) 1 % Debi, 1 % OP QID, ML 07/01/22 Famotidine (Famotidine) 20 Mg Tab, 20 MG PO BID for 30 Days, MG 07/01/22 Amiodarone Hcl (Amiodarone Hcl) 200 Mg Tab, 200 MG PO DAILY for 30 Days 07/01/22 Acetaminophen W/ Codeine (Tylenol W/Cod #3) 1 Tab Tb, 1 TAB PO BID, TAB 07/01/22 Metoprolol Tartrate (Metoprolol Tartrate) 25 Mg Tab, 0.5 TAB PO BID, #180 TAB 1 Refill 07/01/22 Cholecalciferol (VITAMIN D3) 2,000 Unit Tab, 1 TAB PO DAILY, #30 TAB 5 Refills 07/01/22 Potassium Chloride (Potassium Chloride ER) 20 Meq Tab, 20 MEQ PO DAILY, TAB 07/01/22 Spironolactone (Spironolactone) 25 Mg Tab, 1 TAB PO DAILY, #90 TAB 1 Refill 07/01/22 Albuterol Sulfate (VENTOLIN MDI) 90 Mcg Ih, 90 MCG IN Q6HP PRN for SHORTNESS OF BREATH for 30 Days, MCG 04/01/20 Amlodipine Besylate (Amlodipine Besylate) 5 Mg Tab, 5 MG PO DAILY for 30 Days, MG 04/01/20 Information Source: Patient, Emergency Med Personnel Mode of Arrival: EMS Severity: Moderate Timing: Hours Duration: Since onset Prehospital treatment: None Onset: At Rest Cardiac Risk Factors: HTN Past Medical History PAST MEDICAL HISTORY: CKF, COPD, HTN, Liver Surgical History: Cholecystectomy, [employer]CH[employer]ER History: 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 Family History Family History: Reviewed,noncontributory to illness Social History Smoker: Quit Greater Than 1 Year Alcohol: Occasionally Drugs: Marijuana Lives In: Home Constitutional: reports: fatigue, weakness; denies: chills, diaphoresis, fever, malaise, sweats, others EENTM: denies: blurred vision, double vision, ear bleeding, ear discharge, ear drainage, ear pain, ear ringing, eye pain, eye redness, hearing loss, mouth pain, mouth swelling, nasal discharge, nose bleeding, nose congestion, nose pain, photophobia, tearing, throat pain, throat swelling, voice changes, others Respiratory: denies: cough, hemoptysis, orthopnea, SOB at rest, shortness of breath, SOB with excertion, stridor, wheezing, others Cardiovascular: denies: chest pain, dizzy spells, diaphoresis, Dyspnea on exertion, edema, irregular heart beat, left arm pain, lightheadedness, palpitations, PND, syncope, others Gastrointestinal: denies: abdomen distended, abdominal pain, blood streaked bowels, constipated, diarrhea, dysphagia, difficulty swallowing, hematemesis, melena, nausea, poor appetite, poor fluid intake, rectal bleeding, rectal pain, vomiting, others Genitourinary: denies: abnormal vagina bleeding, burning, dyspareunia, dysuria, flank pain, frequency, hematuria, incontinence, pain, , vagina discharge, urgency, others Neurological: denies: dizziness, fainting, headache, left sided numbness, left sided weakness, numbness, paresthesia, pre-existing deficit, right sided numbness, right sided weakness, seizure, speech problems, tingling, tremors, weakness, others Musculoskeletal: denies: back pain, gout, joint pain, joint swelling, muscle pain, muscle stiffness, neck pain, others Integumetry: denies: bruises, change in color, change in hair/nails, dryness, laceration, lesions, lumps, rash, wounds, others Allergic/Immunocompromised: denies: Difficulty Healing, Frequent Infections, Hives, Itching, others Hematologic/Lymphatic: denies: anemia, blood clots, easy bleeding, easy bruising, swollen glands, others Endocrine: denies: excessive hunger, excessive sweating, excessive thirst, excessive urination, flushing, intolerance to cold, intolerance to heat, unexplained weight gain, unexplained weight loss, others Psychiatric: denies: anxiety, bipolar disorder, depression, hopeless, panic disorder, schizophrenia, sleepless, suicidal, others All Other Systems: Reviewed and Negative Physical Exam General Appearance: Moderate Distress HEENT: Pale Conjuntivae (L), Pale Conjuntivae (R), Pharynx Normal, TMs Normal Neck: Full Range of Motion, Non-Tender, Normal, Normal Inspection Respiratory: Chest Non-Tender, Lungs Clear, No Accessory Muscle Use, No Respiratory Distress, Normal Breath Sounds Cardiovascular: No Edema, No JVD, No Murmur, No Gallop, Normal Peripheral Puls es, Regular Rate/Rhythm Breast Exam: Deferred Gastrointestinal: No Organomegaly, Non Tender, No Pulsatile Mass, Normal Bowel Sounds, Soft Genitalia: Deferred Pelvic: Deferred Rectal: Deferred Extremities: No calf tenderness, Normal capillary refill, No pedal edema Musculoskeletal : Apperance: Normal 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 Was a procedure done?: No CP Differential Dx Differential Diagnosis: Angina, [place], Pulmonary Embolus Differential Diagnosis: CHF Differential Diagnosis: Pericarditis X-Ray, Labs, Meds, VS Vital Signs Date Time Temp Pulse Resp B/P (MAP) Pulse Ox O2 Delivery O2 Flow Rate FiO2 08/19/25 11:14 98 Nasal Cannula* 2 28 08/19/25 10:52 94 Room Air* 0 21 08/19/25 10:47 67 17 96 Room Air* 0 21 08/19/25 10:45 68 18 90/46 (61) 93 08/19/25 10:24 97.4 67 18 87/46 (60) 93 97.4 08/19/25 09:56 76 08/19/25 09:48 98.0 76 16 60/41 95 98.0 08/19/25 09:43 74 Lab Test 08/19/25 10:44 08/19/25 10:23 Range/Units POC Glucose 90 70-106 mg/dl White Blood Count 6.3 4.4-10.8 10^3/uL Red Blood Count 1.70 L 4.0-5.20 10^6/uL Hemoglobin 5.3 *L 12.2-16.2 g/dL Hematocrit 17.1 L 36.0-46.0 % Mean Corpuscular Volume 100.8 H 80.0-100.0 fL Mean Corpuscular Hemoglobin 30.9 28.0-32.0 pg Mean Corpuscular Hemoglobin Concent 30.6 L 32.0-36.0 g/dL Red Cell Distribution Width 18.2 H 11.8-14.3 % Platelet Count 86 L 140-450 10^3/uL Mean Platelet Volume 8.6 6.9-10.8 fL Neutrophils (%) (Auto) 64.5 37.0-80.0 % Lymphocytes (%) (Auto) 13.6 10.0-50.0 % Monocytes (%) (Auto) 19.9 H 0.0-12.0 % Eosinophils (%) (Auto) 1.7 0.0-7.0 % Basophils (%) (Auto) 0.3 0.0-2.0 % Neutrophils # (Auto) 4.1 1.6-8.6 10 ^3/uL Lymphocytes # (Auto) 0.9 0.4-5.4 10 ^3/uL Monocytes # (Auto) 1.2 0-1.3 10 ^3/uL Eosinophils # (Auto) 0.1 0-0.8 10 ^3/uL Basophils # (Auto) 0 0-0.2 10 ^3/uL Nucleated Red Blood Cells 0.0 % Sodium Level 143 136-145 mmol/L Potassium Level 5.3 H 3.5-5.1 mmol/L Chloride Level 117 H 98-107 mmol/L Carbon Dioxide Level 18 L 20-31 mmol/L Anion Gap 8 5-15 Blood Urea Nitrogen 34 H 9-23 mg/dL Creatinine 2.01 H 0.550-1.02 mg/dL Glomerular Filtration Rate Calc 26 >90 mL/min BUN/Creatinine Ratio 16.9 10.0-20.0 Serum Glucose 87 74-106 mg/dL Lactic Acid Level 1.9 0.4-2.0 mmol/L Calcium Level 7.1 L 8.7-10.4 mg/dL Troponin I High Sensitivity 3 L </=34 ng/L Current Medications Medications (Trade) Dose Ordered Sig/Carroll Route Start Time Stop Time Status Last Admin Sodium Chloride 1,000 ml @ 1,000 mls/hr Q1H ONCE IV 08/19/25 10:00 08/19/25 10:59 DC 08/19/25 10:10 Chest XR indicates: Mild pulmonary venous congestion. IV Hep-Lock was established The patient was given normal saline as a bolus. We did a CBC in the hemoglobin is only 5.3 and hematocrit of 17.1 The chemistry panel shows a potassium of 5.3 indicating hypokalemia The BUN is 34 and the creatinine is 2.01 At this time, the patient is being admitted to the hospitalist We will be consulting Nephrology The patient also will have a blood transfusion of 1 unit packed red blood cells Images Reviewed?: Images reviewed and evaluated by me Time of 1ST Reevaluation: 11:52 Reevaluation 1ST: Unchanged Patient Education/Counseling: Diagnosis, Treatment, Prognosis Family Education/Counseling: No Family Present SEPSIS Sepsis Screen Date sepsis recognized/suspect: Aug 19, 2025 Time Sepsis recognized/suspect: 949 Recent Procedure: No On Antibiotic Therapy: No Respiratory Rate >20: No Heart Rate >90: No Temp<36 C (96.8 F) or >38.3 C: No SBP <90 or MAP <65 mmHG: No New Acute Mental Status Change: No Is the patient on CPAP, BIPAP,: No Physician Orders Chest Portable (08/19/25 09:51) Urinalysis (08/19/25 09:51) Heplock Iv (08/19/25 09:51) Bowling Ball Marker (08/19/25 09:51) Blood Pressure (08/19/25 09:51) Pulse Oximetry (08/19/25 09:51) Blood Culture (08/19/25 09:51) Troponin-I Hs (08/19/25 10:51) Troponin-I Hs (08/19/25 12:51) Type And Screen (08/19/25 11:11) Vital Signs Date Time Temp Pulse Resp B/P (MAP) Pulse Ox O2 Delivery O2 Flow Rate FiO2 08/19/25 11:14 98 Nasal Cannula* 2 28 08/19/25 10:52 94 Room Air* 0 21 08/19/25 10:47 67 17 96 Room Air* 0 21 08/19/25 10:45 68 18 90/46 (61) 93 08/19/25 10:24 97.4 67 18 87/46 (60) 93 97.4 08/19/25 09:56 76 08/19/25 09:48 98.0 76 16 60/41 95 98.0 08/19/25 09:43 74 Laboratory Tests Test 08/19/25 10:23 Lactic Acid Level 1.9 mmol/L (0.4-2.0) White Blood Count 6.3 10^3/uL (4.4-10.8) Medications Medications Dose Ordered Sig/Carroll Route Start Time Stop Time Status Last Admin Dose Admin Sodium Chloride 1,000 ml @ 1,000 mls/hr Q1H ONCE IV 08/19/25 10:00 08/19/25 10:59 DC 08/19/25 10:10 Departure 1 Departure Time of Disposition: 11:53 Impression: Primary Impression: Pulmonary edema Qualified Codes: J81.0 - Acute pulmonary edema Additional Impression: Severe anemia Disposition: ADMITTED INPATIENT Admit to: Tele Condition: Fair Critical Care Note Critical Care Time?: No Stability Stability form required: No Heart Score Heart Score: Heart Score Response (Comments) Value History Highly Suspicious 2 EKG Normal 0 Age >65 2 Risk Factors >3 or Hx ASHD 2 Troponin N/A 0 Total 6 I personally scribed for SANTOS LOPEZ MD ([email or web address]) on 08/19/25 at 09:56. Electronically submitted by Antonino Norris ([email or web address]). I personally scribed for SANTOS LOPEZ MD ([email or web address]) on 08/19/25 at 10:33. Electronically submitted by Antonino Norris ([email or web address]). SANTOS LOPEZ MD Aug 19, 2025 09:56
[2025-08-19] MEDS: SODIUM CHLORIDE 0.9% 1,000 ML IV ONE (10:10)
--- NOTE | 2025-08-19 10:32 | DVH ---
CHEST RADIOGRAPH Indication: weakness Technique: Single frontal view of the chest was obtained COMPARISON: XY CHEST TWO VIEWS ROUTINE on DOS: 10/03/23, XY CHEST PORTABLE on DOS: 05/13/23, XY CHEST PORTABLE on DOS: 12/17/22, XY CHEST TWO VIEWS ROUTINE on DOS: 12/15/22, CXR1 on DOS: 11/09/22 FINDINGS: Cardiac silhouette is borderline in size. Slight prominence of the pulmonary vasculature and interstitium. No dense focal airspace disease. No significant pleural effusions. Bones and soft tissues demonstrate no significant abnormality. IMPRESSION: Mild pulmonary venous congestion.
[2025-08-19 11:00] LABS: Hematocrit 17.1 % (36.0-46.0); Mean Corpuscular Hemoglobin 30.9 pg (28.0-32.0); Mean Corpuscular Volume 100.8 fL (80.0-100.0); Nucleated Red Blood Cells % 0.0 %
[2025-08-19 11:09] LABS: Sodium 143 mmol/L (136-145)
[2025-08-19 11:10] LABS: Anion Gap 8 (5-15)
[2025-08-19 11:11] LABS: Hemoglobin 5.3 g/dL (12.2-16.2)
[2025-08-19 11:15] LABS: BUN/Creatinine Ratio 16.9 (10.0-20.0); Glucose 87 mg/dL (74-106)
[2025-08-19 11:16] LABS: Blood Urea Nitrogen 34 mg/dL (9-23); Calcium 7.1 mg/dL (8.7-10.4); Carbon Dioxide 18 mmol/L (20-31); Chloride 117 mmol/L (98-107); Potassium 5.3 mmol/L (3.5-5.1)
--- NOTE | 2025-08-19 11:45 | ECG ---
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
[2025-08-19] MEDS ORDERED: ONDANSETRON HCL 4 MG/2 ML VIAL IV PRN (14:30)
[2025-08-19] MEDS ORDERED: ALBUTEROL SULF 2.5 MG/0.5ML(0.5%) NEB SOLN NEB PRN (14:30)
[2025-08-19 15:02] LABS: Alanine Aminotransferase 19.0 U/L (7-40); Alkaline Phosphatase 99.0 U/L (46-116); Bilirubin, Total 0.6 mg/dL (0.2-1.0)
[2025-08-19 15:04] LABS: Iron 15.0 ug/dL (50-170); Total Iron Binding Capacity 185.0 ug/dL (250-425)
[2025-08-19 15:06] LABS: Albumin 1.8 g/dL (3.2-4.8); Bilirubin, Direct 0.3 mg/dL (<0.3); Total Protein 4.1 g/dL (5.7-8.2)
[2025-08-19 15:13] LABS: Ferritin 73.1 ng/mL (10-291)
[2025-08-19 15:31] LABS: Urine Protein, UAD Negative (Negative)
--- NOTE | 2025-08-19 18:47 | DVHHP2 ---
History of Present Illness Reason for Visit: Hypotension History of Present Illness 75-year-old female presents for evaluation of hypotension. Patient was seen in her primary care provider's office today and was noted to have a blood pressure in the 60s. Patient was brought in via EMS for evaluation. She reports generalized weakness with fatigue and dizziness over the past three days. Patient also reports taking accidentally a muscle relaxant today in the morning which normally takes at night. No chest pain. No abdominal pain denies hematuria or melena. Past Medical History COPD, hypertension, liver disease, chronic kidney disease Past Surgical History Cholecystectomy, Family History Noncontributory Smoke: Quit ALCOHOL: occassional Drugs: Marijuana Lives: with Family Review of Systems Review of Systems Review of systems are currently negative otherwise addressed in HPI. Allergies: Coded Allergies: NO KNOWN ALLERGIES (Unverified , 12/17/19) Medications Current Medications Medications Dose Ordered Sig/Carroll Route Start Time Stop Time Status Last Admin Dose Admin Amiodarone HCl 200 mg DAILY PO 08/20/25 10:00 Albuterol 2.5 mg Q6HPRN PRN NEB 08/19/25 14:30 Ondansetron HCl 4 mg Q4HP PRN IV 08/19/25 14:30 Exam Vital Signs Vital Signs Date Time Temp Pulse Resp B/P (MAP) Pulse Ox O2 Delivery O2 Flow Rate FiO2 08/19/25 18:00 98.0 67 17 123/72 98.0 08/19/25 18:00 97 08/19/25 15:25 1.0 24 08/19/25 11:14 Nasal Cannula* Exam Gen: 75-year-old female in mild distress Skin: Warm, dry, normal color and texture, no rash. HEENT: Normocephalic atraumatic, mucous membranes moist and pink. Neck: Cervical and supraclavicular nodes normal without enlargement, trachea is midline, thyroid gland is normal without masses. Pulmonary: Clear to auscultation and percussion bilaterally. Cardiac: Regular rate and rhythm. No murmur Abdomen: Soft, nontender, nondistended, bowel sounds present all 4 quadrants, no guarding, no rigidity, no organomegaly. Extremities: No cyanosis, clubbing, no edema Neuro: Cranial nerves II through XII grossly intact, normal affect and speech, no focal motor deficits. Labs/Xrays ORDERING PHYSICIAN: SANTOS LOPEZ MD PROCEDURE(s): CXRP - CHEST PORTABLE REASON: weakness ORDER NUMBER(s): [id number], ACCESSION NUMBER(s): [id number] CHEST RADIOGRAPH Indication: weakness Technique: Single frontal view of the chest was obtained COMPARISON: XY CHEST TWO VIEWS ROUTINE on DOS: 10/03/23, XY CHEST PORTABLE on DOS: 05/13/23, XY CHEST PORTABLE on DOS: 12/17/22, XY CHEST TWO VIEWS ROUTINE on DOS: 12/15/22, CXR1 on DOS: 11/09/22 FINDINGS: Cardiac silhouette is borderline in size. Slight prominence of the pulmonary vasculature and interstitium. No dense focal airspace disease. No significant pleural effusions. Bones and soft tissues demonstrate no significant abnormality. IMPRESSION: Mild pulmonary venous congestion. Labs Test 08/19/25 15:05 08/19/25 13:24 08/19/25 11:36 08/19/25 10:44 Range/Units Urine Color Yellow Yellow Urine Clarity Clear Clear Urine pH 5.5 5.0-9.0 Urine Specific [place] 1.019 1.001-1.035 Urine Protein Negative Negative Urine Ketones Negative Negative Urine Blood Negative Negative /uL Urine Nitrite Negative Negative Urine Bilirubin Negative Negative Urine Urobilinogen Normal Negative mg/dL Urine Leukocyte Esterase Negative Negative /uL Urine RBC 1 0 - 4 /hpf Urine Microscopic WBC 1 0-5 /HPF Urine Squamous Epithelial Cells Few <5 /hpf Urine Bacteria None seen None Seen /hpf Urine Glucose Normal Normal mg/dL Total Bilirubin 0.6 0.2-1.0 mg/dL Direct Bilirubin 0.3 <0.3 mg/dL Aspartate Amino Transferase (AST) 37 13-40 U/L Alanine Aminotransferase (ALT) 19 7-40 U/L Alkaline Phosphatase 99 46-116 U/L Lactate Dehydrogenase 258 H 120-246 U/L Troponin I High Sensitivity 3 L </=34 ng/L Total Protein 4.1 L 5.7-8.2 g/dL Albumin 1.8 L 3.2-4.8 g/dL Iron Level 15 L 50-170 ug/dL Total Iron Binding Capacity 185 L 250-425 ug/dL Percent Iron Saturation 8.1 L 15-50 % Ferritin 73.1 10-291 ng/mL Vitamin B12 Level 4163 H 211-911 pg/mL Folic Acid 37.58 >5.38 ng/mL POC Glucose 90 70-106 mg/dl Test 08/19/25 10:23 Range/Units White Blood Count 6.3 4.4-10.8 10^3/uL Red Blood Count 1.70 L 4.0-5.20 10^6/uL Hemoglobin 5.3 *L 12.2-16.2 g/dL Hematocrit 17.1 L 36.0-46.0 % Mean Corpuscular Volume 100.8 H 80.0-100.0 fL Mean Corpuscular Hemoglobin 30.9 28.0-32.0 pg Mean Corpuscular Hemoglobin Concent 30.6 L 32.0-36.0 g/dL Red Cell Distribution Width 18.2 H 11.8-14.3 % Platelet Count 86 L 140-450 10^3/uL Mean Platelet Volume 8.6 6.9-10.8 fL Neutrophils (%) (Auto) 64.5 37.0-80.0 % Lymphocytes (%) (Auto) 13.6 10.0-50.0 % Monocytes (%) (Auto) 19.9 H 0.0-12.0 % Eosinophils (%) (Auto) 1.7 0.0-7.0 % Basophils (%) (Auto) 0.3 0.0-2.0 % Neutrophils # (Auto) 4.1 1.6-8.6 10 ^3/uL Lymphocytes # (Auto) 0.9 0.4-5.4 10 ^3/uL Monocytes # (Auto) 1.2 0-1.3 10 ^3/uL Eosinophils # (Auto) 0.1 0-0.8 10 ^3/uL Basophils # (Auto) 0 0-0.2 10 ^3/uL Nucleated Red Blood Cells 0.0 % Reticulocyte Count (auto) 3.89 H 0.5-1.5 % Sodium Level 143 136-145 mmol/L Potassium Level 5.3 H 3.5-5.1 mmol/L Chloride Level 117 H 98-107 mmol/L Carbon Dioxide Level 18 L 20-31 mmol/L Anion Gap 8 5-15 Blood Urea Nitrogen 34 H 9-23 mg/dL Creatinine 2.01 H 0.550-1.02 mg/dL Glomerular Filtration Rate Calc 26 >90 mL/min BUN/Creatinine Ratio 16.9 10.0-20.0 Serum Glucose 87 74-106 mg/dL Lactic Acid Level 1.9 0.4-2.0 mmol/L Calcium Level 7.1 L 8.7-10.4 mg/dL SEPSIS Sepsis Screen Date sepsis recognized/suspect: Aug 19, 2025 Time Sepsis recognized/suspect: 1050 Recent Procedure: No On Antibiotic Therapy: No Respiratory Rate >20: No Heart Rate >90: No Temp<36 C (96.8 F) or >38.3 C: No SBP <90 or MAP <65 mmHG: No New Acute Mental Status Change: No Is the patient on CPAP, BIPAP,: No Physician Orders Administer Blood Products UD (08/19/25 12:25) Obtain Consent For: (08/19/25 12:25) PTPTT (08/19/25 14:24) Amiodarone Tablet (Cordarone Tablet) (08/20/25 10:00) Albuterol Medneb (Ventolin Medneb) (08/19/25 14:30) Stool Occult Blood (08/19/25 14:24) Basic Metabolic Panel (08/20/25 04:00) Admit (08/19/25 14:24) Ondansetron Hcl (Zofran) (08/19/25 14:30) Complete Blood Count (08/20/25 04:00) Condition: Stable (08/19/25 14:24) Bedrest With Bathroom Privileg (08/19/25 14:24) Hepatic Diet (50gmpro,2gmna) (08/19/25 Dinner) * Gi Dvh Carry In Worker (08/19/25 16:58) Furosemide Tablet (Lasix Tablet) (08/20/25 10:00) Spironolactone (Aldactone) (08/20/25 10:00) Metoprolol Tartrate Tablet (Lopressor Ta (08/19/25 22:00) Vital Signs Date Time Temp Pulse Resp B/P (MAP) Pulse Ox O2 Delivery O2 Flow Rate FiO2 08/19/25 18:00 98.0 67 17 123/72 98.0 08/19/25 18:00 67 18 123/72 (89) 97 08/19/25 17:45 66 18 141/46 (77) 97 08/19/25 17:45 98.0 66 17 141/46 98.0 08/19/25 17:30 98.0 66 17 117/45 98.0 08/19/25 17:30 66 18 117/45 (69) 97 08/19/25 17:15 97.9 62 17 120/40 97.9 08/19/25 17:15 62 18 120/40 (66) 97 08/19/25 17:00 61 18 106/59 (75) 97 08/19/25 17:00 97.9 68 17 106/59 97.9 08/19/25 16:45 97.9 68 17 119/71 97.9 08/19/25 16:30 97.9 61 17 110/61 97.9 08/19/25 16:00 97.9 56 17 106/51 97.9 08/19/25 16:00 97.9 56 18 106/51 (69) 97 97.9 08/19/25 15:25 66 20 115/55 96 1.0 24 08/19/25 15:00 97.8 60 17 114/60 97.8 08/19/25 15:00 60 18 114/60 (78) 97 08/19/25 14:45 97.7 65 17 122/51 97.7 08/19/25 14:45 62 18 128/74 (92) 97 08/19/25 14:30 74 18 88/58 (68) 97 08/19/25 14:30 97.6 74 17 88/58 97.6 08/19/25 14:15 97.6 68 17 73/44 97.6 08/19/25 14:15 68 18 73/44 (54) 97 08/19/25 14:00 97.7 64 17 82/61 97.7 08/19/25 14:00 97.7 66 18 82/61 (68) 97 97.7 08/19/25 13:45 97.7 67 17 96/57 97.7 08/19/25 13:30 72 18 98/53 (68) 97 08/19/25 13:00 62 18 87/52 (64) 97 08/19/25 12:45 65 18 88/48 (61) 97 08/19/25 12:30 66 18 80/46 (57) 97 08/19/25 12:00 97.8 68 18 89/48 (62) 97 97.8 08/19/25 11:30 71 18 93/58 (70) 93 08/19/25 11:14 98 Nasal Cannula* 2 28 08/19/25 11:00 68 18 86/32 (50) 93 08/19/25 10:52 94 Room Air* 0 21 08/19/25 10:47 67 17 96 Room Air* 0 21 08/19/25 10:45 68 18 90/46 (61) 93 Laboratory Tests Test 08/19/25 10:23 Lactic Acid Level 1.9 mmol/L (0.4-2.0) White Blood Count 6.3 10^3/uL (4.4-10.8) Medications Medications Dose Ordered Sig/Carroll Route Start Time Stop Time Status Last Admin Dose Admin Sodium Chloride 1,000 ml @ 1,000 mls/hr Q1H ONCE IV 08/19/25 10:00 08/19/25 10:59 DC 08/19/25 10:10 1,000 MLS/HR Assessment/Plan Assessment/Plan Assessment Symptomatic anemia Hypotension COPD Plan Admit the patient to [facility] [place] the hospitalist Transfuse 2 units of packed red cells Resume home medications Continue treatment per orders. Plan discussed with: Patient My Orders Orders - ZEESHAN CHAPMAN AGACNYobani Procedure Category Date Status Time PTPTT LAB 08/19/25 Logged 14:24 Amiodarone Tablet PHA 08/20/25 In Process (Cordarone Tablet) 10:00 Albuterol Medneb PHA 08/19/25 In Process (Ventolin Medneb) 14:30 Stool Occult Blood LAB 08/19/25 Logged 14:24 Basic Metabolic Panel LAB 08/20/25 Verified 04:00 Admit ADMIT 08/19/25 Transmitted 14:24 Ondansetron Hcl PHA 08/19/25 In Process (Zofran) 14:30 Complete Blood Count LAB 08/20/25 Verified 04:00 Condition: Stable ARIEL 08/19/25 In Process 14:24 Bedrest With Bathroom ARIEL 08/19/25 In Process Privileg 14:24 Hepatic Diet DIET 08/19/25 Transmitted (50gmpro,2gmna) Dinner * Gi Dvh Carry In Worker CONS 08/19/25 Transmitted 16:58 Furosemide Tablet PHA 08/20/25 Verified (Lasix Tablet) 10:00 Spironolactone PHA 08/20/25 Verified (Aldactone) 10:00 Metoprolol Tartrate PHA 08/19/25 Verified Tablet (Lopressor Ta 22:00 Date of Service: Aug 19, 2025 Billing Provider: ZEESHAN CHAPMAN Common Visit Codes: [id number] INP/OBS CARE (MOD) ZEESHAN CHAPMAN Aug 19, 2025 18:47
[2025-08-19] MEDS: METOPROLOL TARTRATE 25 MG TAB PO SCH (22:00)
[2025-08-19 23:37] LABS: INR 1.39 (0.9-1.15); Partial Thromboplastin Time 33.8 SEC (24.5-34.5); Prothrombin Time 14.3 sec (9.3-11.8)
[2025-08-19] MEDS ORDERED: CYAN-17 PO (23:38)
[2025-08-19] MEDS ORDERED: TIZA4CAP PO (23:38)
[2025-08-19] MEDS ORDERED: RIFA550T PO (23:38)
[2025-08-19] MEDS ORDERED: CHOL25CH3 PO (23:38)
[2025-08-20] VITALS (14 sets, daily range): BP systolic 107–136; BP diastolic 60–98; PULSE 67–97; RESP 16–20; TEMP 97.4–98.6; O2SAT 91–100
[2025-08-20 00:32] LABS: Hematocrit 31.8 % (36.0-46.0); Hemoglobin 10.3 g/dL (12.2-16.2)
[2025-08-20] MEDS: HYDROcodone-ACET 5/325MG TAB PO PRN (05:22)
[2025-08-20 06:52] LABS: Hematocrit 30.4 % (36.0-46.0); Hemoglobin 9.8 g/dL (12.2-16.2); Mean Corpuscular Hemoglobin 31.3 pg (28.0-32.0); Mean Corpuscular Volume 96.8 fL (80.0-100.0); Nucleated Red Blood Cells % 0.1 %
[2025-08-20 07:01] LABS: Sodium 143 mmol/L (136-145)
[2025-08-20 07:02] LABS: Anion Gap 8 (5-15)
[2025-08-20 07:07] LABS: BUN/Creatinine Ratio 13.9 (10.0-20.0); Blood Urea Nitrogen 20 mg/dL (9-23); Glucose 87 mg/dL (74-106)
[2025-08-20 07:08] LABS: Calcium 7.7 mg/dL (8.7-10.4); Carbon Dioxide 18 mmol/L (20-31); Chloride 117 mmol/L (98-107)
[2025-08-20 07:11] LABS: Potassium 5.7 mmol/L (3.5-5.1)
[2025-08-20] MEDS: ALBUTEROL SULF 2.5 MG/0.5ML(0.5%) NEB SOLN NEB ONE (08:42)
--- NOTE | 2025-08-20 09:44 | DVH ---
INDICATION: eval ruq, hx of cirrhosis TECHNIQUE: Multiple real-time sonographic images of the abdomen were obtained. COMPARISON: US GALLBLADDER on DOS: 10/03/23, US ABDOMEN COMPLETE SONOGRAM on DOS: 05/13/23, ABDOMEN LIMITED on DOS: 06/30/22, ABDOMEN SINGLE ORGAN QUAD on DOS: 03/31/20 FINDINGS: The liver is heterogeneous in echogenicity. The liver measures 12cm. No intrahepatic biliary ductal dilatation is noted. The liver appears cirrhotic. Hepatofugal flow in the main portal vein with tortuous vessels and varices. The right kidney measures 9cm. No hydronephrosis. The pancreas is not well visualized due to obscuration from bowel gas. The visualized portions of the IVC and aorta are grossly unremarkable. IMPRESSION: Hepatic cirrhosis with varices. Main portal vein appears with hepatofugal flow and tortuous vessels
[2025-08-20] MEDS: AMIODARONE HCL 200 MG TAB PO SCH (10:00)
[2025-08-20] MEDS: SPIRONOLACTONE 25 MG TAB PO SCH (10:11)
[2025-08-20] MEDS: FUROSEMIDE 20 MG/2 ML VIAL IV ONE (10:26)
[2025-08-20] MEDS: DEXTROSE (50%) 50ML SYRG IV ONE (10:26)
[2025-08-20] MEDS: FUROSEMIDE 20 MG TAB PO SCH (10:27)
[2025-08-20] MEDS: InsuLIN REG 1unit/0.01ml Soln (100units/ml) IV ONE (10:27)
[2025-08-20] MEDS: LACTULOSE 20Gm/30ML SOLN PO SCH (15:11)
[2025-08-20] MEDS: SODIUM ZIRCONIUM CYCL 10 GM PAK PO SCH (15:16)
--- NOTE | 2025-08-20 16:38 | DVHPNRES ---
Progress Note Date Seen: Aug 20, 2025 Resident Creating Document: [facility] RESIDENT Medical Necessity Reason Pt with a Central, PICC or Fol: No Subjective Review of Systems Brief history on arrival: This is a 75-year-old female with past medical history of liver cirrhosis, hepatitis-C infection, COPD, hypertension, CKD, drug use in past, was brought to the ER by EMS with chief complain of altered mental status and hypotension. Patient reportedly took her muscle relaxant (tizanidine) in the morning instead of HS, leaving her in coherent. Patient also help of her neighbor, and was taken to her PCP. She received results from her lab work of last week showing elevated creatinine. Her vitals with at the PCP's office showed low blood pressure, urging her PCP to call EMS. Patient reported feeling dizzy, nauseous and complained of blurry vision. She complained of gait disturbance, reporting, "my PCP also felt like I was walking differently". She did not lose consciousness or hit her head. Patient denies fever, chills, vomiting, melena. PMHx: Liver cirrhosis, hepatitis-C infection, COPD, hypertension, CKD, drug abuse, multiple cysts in the pancreas, kidney PSHx: Cholecystectomy, section Family history: Noncontributory Social history: She reportedly quit smoking and drug use. Occasional use of alcohol and marijuana. Lives in house with family. Home medication: Rifaximin, furosemide, spironolactone, tizanidine, lactulose Allergic history: No known allergies ROS: Constitutional: Altered mental status. Denies weight loss, fever and chills. HEENT: Denies changes in vision and hearing. Respiratory: Denies shortness of breath and cough Cardiovascular: Denies chest discomfort or palpitations GI: Denies abdominal pain, nausea, vomiting and diarrhea. : Denies dysuria and urinary frequency. Musculoskeletal: Denies myalgias and joint pain Skin: Denies rash and pruritus. Neurological: Dizziness, blurry vision; denies headache, vision or hearing problems 08/20/25: Patient was seen at bedside today. Patient reports improvement in her symptoms. Objective vital signs Vital Sign Date Time Temp Pulse Resp B/P (MAP) Pulse Ox O2 Delivery O2 Flow Rate FiO2 08/20/25 13:00 98.1 87 18 123/72 (89) 98 98.1 08/20/25 08:42 Nasal Cannula 3.0 08/20/25 08:42 32 Total Intake and Output 08/19/25 08/19/25 08/20/25 15:00 23:00 07:00 Intake Total 1300 ml 2700 ml 240 ml Output Total 400 ml Balance 1300 ml 2300 ml 240 ml medications Current Medications Medications Dose Ordered Sig/Carroll Route Start Time Stop Time Status Last Admin Dose Admin Amiodarone HCl 200 mg DAILY PO 08/20/25 10:00 Albuterol 2.5 mg Q6HPRN PRN NEB 08/19/25 14:30 Ondansetron HCl 4 mg Q4HP PRN IV 08/19/25 14:30 Furosemide 20 mg DAILY PO 08/20/25 10:00 08/20/25 10:27 20 MG Spironolactone 25 mg DAILY PO 08/20/25 10:00 08/20/25 10:11 25 MG Metoprolol Tartrate 12.5 mg BID PO 08/19/25 22:00 Acetaminophen/ Hydrocodone Bitart 1 tab Q6HPRN PRN PO 08/20/25 05:00 08/20/25 05:22 1 TAB Rifaximin 550 mg BID PO 08/20/25 14:30 08/20/25 15:10 550 MG Lactulose 30 ml BID PO 08/20/25 14:58 08/20/25 15:11 30 ML Polyethylene Glycol 17 gm DAILY PO 08/21/25 10:00 Zirconium Oxide 10 gm DAILY PO 08/20/25 15:15 08/20/25 15:16 10 GM Pantoprazole Sodium 40 mg DAILY PO 08/21/25 10:00 Examination General: Patient alert and oriented in person, place and time. Patient following commands. HEENT: Normocephalic, atraumatic, moist mucous membranes Respiratory/pulmonary: Expiratory wheeze heard in posterior lung price Cardiovascular: S1, S2, S3 heard with no associated murmurs Abdomen: No abdominal distention, no tenderness on palpation. Dullness to percussion in right upper quadrant. Extremities: There is no peripheral edema present at the lower extremities. Peripheral Pulses: 3+ Radial (R). 3+ Radial (L). 3+ Dorsalis pedis (R). 3+ Dorsalis pedis(L) Skin: No rashes or pruritus, there is no sacral edema present at this time. Neurological: Intact cranial nerves with no focal neurologic deficits Rectal exam: Patient refused consent for rectal exam on 2 occasions. Both I and Dr. Ledbetter explained the examination, need for performing the exam, patient continues to refuse rectal exam, stating at her age she does not feel comfortable with rectal exam. laboratory and microbiology Laboratory Tests 08/20/25 10:12 08/20/25 06:31 Test 08/20/25 06:31 Range/Units Serum Glucose 87 74-106 mg/dL Microbiology Date/Time Source Procedure Growth Status 08/19/25 10:23 Blood Blood Culture - Preliminary NO GROWTH AFTER 24 HOURS OF INCUBATION. Resulted Problem List/Assessment/Plan Problem List/Assessment/Plan Severe symptomatic anemia Esophageal varices, possible GI hemorrhage Refused rectal exam P.o. Protonix SOB ordered Patient's hemoglobin was 5.3 on arrival, pRBC given Hemoglobin has normalized; continue monitoring H&H GI on board, EGD scheduled tomorrow Liver cirrhosis Hepatic encephalopathy, resolving Hypoalbuminemia Hyperammonemia Portal hypertension Hepatitis-C infection Altered mental status due to above Meld score 14 Ultrasound right upper quadrant shows hepatic cirrhosis with varices Continue furosemide, lactulose, rifaximin, spironolactone Chronic respiratory failure On 3 L oxygen at home COPD without exacerbation Hypertension Continue furosemide, spironolactone MOLLY on CKD, hemodynamically mediated due to VMN Hepatorenal syndrome, possible Hyperkalemia Hyperkalemia protocol ordered EKG obtained shows no T-wave changes Discussed avoiding nephrotoxins like NSAIDS, contrast Ordered urine sodium Repeat BMP History of Drug abuse History of Multiple cysts in the pancreas, kidney Code status: Full code Discussed code status with patient and son for more than 15 minutes DIET: Hepatic diet DVT PROPHYLAXIS: Holding off DVT prophylaxis with Lovenox, SCD ordered GI PROPHYLAXIS: Protonix CODE STATUS: Goals of care discussed with patient at bedside for more than 40 minutes. Spoke to the son Mr. Horan ([phone]) regarding diagnosis and plan in great detail for 25 minutes. Full code DISPOSITION: Telemetry This medical document was created using an electronic medical record system with [employer] direct computerized dictation system. Although this document has been carefully reviewed, there may still be some phonetic and typographical errors. These areas are purely typographical due to imperfections of the software programs, and do not reflect any compromise in the patient's medical care. Patient's status and plan discussed with the patient. Case discussed with Dr. Mansfield Plan discussed with: Patient, Son, Other (Nurses) My Orders My Orders Orders - [facility] Procedure Category Date Status Time Electrocardigram EKG 08/20/25 Logged 07:33 Basic Metabolic Panel LAB 08/21/25 Verified 04:00 Complete Blood Count LAB 08/21/25 Verified 04:00 CC Plasma Assessment Blood Product Administration S: 1700 Date of Service: Aug 20, 2025 Billing Provider: NORMAN MANSFIELD MD Common Visit Codes: [id number] INP/OBS CARE(HIGH) [facility] Aug 20, 2025 16:38 NORMAN MANSFIELD MD Aug 21, 2025 00:03
[2025-08-20 17:37] LABS: Hematocrit 34.0 % (36.0-46.0); Hemoglobin 10.8 g/dL (12.2-16.2)
[2025-08-20] MEDS: PANTOPRAZOLE 40mg/50ML NS AE 50 ML IV SCH (19:08)
--- NOTE | 2025-08-20 20:51 | DVHINCON2 ---
Date of service: Aug 20, [address] Escudero Reason for Consultation Severe anemia hypotension History of Present Illness This 75-year-old female who presented to the emergency room with complaints of hypotension and weakness and tiredness and anemia prefers found to be 61 year of 41 in the off office of the his her primary MD Has been increasingly weak and tired she apparently took some muscle relaxer and got dizzy he was also found to have a low hemoglobin of 5.3 Denies history of some black stools on and off in the last few weeks apparently of properly also had one or two episodes of bright red bleeding Complaints of some abdominal fullness and bloating Ultrasound shows possible cirrhosis of the liver The GI consult is because of the anemia and possible GI blood loss Past Medical History History of pancreatic cyst and renal cyst in the past Patient has got COPD is on home oxygen Patient has hypertension liver problems Chronic kidney disease Past Surgical History Cholecystectomy Family History: Alzheimer's disease G8 FATHER, Hypertension G8 MOTHER, G8 FATHER, Family History Noncontributory Social History Denies smoking now Occasional drinking takes marijuana occasionally Allergies: Coded Allergies: NO KNOWN ALLERGIES (Unverified , 12/17/19) Home Meds Active Scripts Azithromycin (Azithromycin) 500 Mg Tab, 1 TAB PO DAILY, #3 TAB Prov:ZEESHAN WALKER MD 10/05/23 Furosemide (Lasix) 40 Mg Tab, 40 MG PO QAM for 30 Days, #30 TAB 1 Refill Prov:ZEESHAN WALKER MD 10/05/23 Hydrocodone-Acetaminophen (Hydrocodone/Acetaminophen 5-325 mg) 1 Tab Tab, 1 TAB PO BIDP PRN for 5 Days, #10 TAB Prov:ZEESHAN WALKER MD 12/19/22 Sucralfate (CARAFATE SUSP) 1 Gm/10 Ml Ss, 1 GM PO BIDAC for 30 Days, #120 ML Prov:ZEESHAN WALKER MD 12/19/22 Pantoprazole Sodium Sesquihydr (Pantoprazole Sodium) 40 Mg Tab, 40 MG PO DAILY for 30 Days, #30 TAB 2 Refills Prov:ZEESHAN WALKER MD 12/19/22 Ciprofloxacin Hcl (Cipro) 500 Mg Tab, 1 TAB PO BID, #20 TAB Prov:BELINDA PRINCE MD 11/12/22 Lactulose (Lactulose) 10 Gm Cheng, 30 GM PO BID, #120 PACK Prov:BRIGITTE CALHOUN MD 07/04/22 Patients Own Medication (PATIENTS OWN MEDICATION) ., 1 DROP RIGHTEYE QID for 9 Days PTS OWN MED-OBTAIN FROM PT AND SEND TO RX DRUG: FREQ: RX# EXP: DATE DISP: TECH: RP: Prov:BRIGITTE CALHOUN MD 07/04/22 Reported Medications Cholecalciferol (D3) 25 Mcg Chw, 25 MCG PO DAILY, TAB.CHEW 08/19/25 Rifaximin (Xifaxan) 550 Mg Tab, 550 MG PO BID, TAB 08/19/25 Cyanocobalamin (B12) 1,000 Mcg Cap, 1000 MCG PO DAILY, CAP 08/19/25 Tizanidine Hydrochloride (Zanaflex) 4 Mg Cap, 0.5 CAP PO QPM, #30 CAP 08/19/25 Lactulose (Lactulose) 10 Gm/15 Ml Marisel, 30 ML PO QID 10/03/23 Prednisolone Acetate (Ophth) (Pred Forte) 1 % Debi, 1 % OP QID, ML 07/01/22 Acetaminophen W/ Codeine (Tylenol W/Cod #3) 1 Tab Tb, 1 TAB PO BID, TAB 07/01/22 Potassium Chloride (Potassium Chloride ER) 20 Meq Tab, 20 MEQ PO DAILY, TAB 07/01/22 Spironolactone (Spironolactone) 25 Mg Tab, 1 TAB PO DAILY, #90 TAB 1 Refill 07/01/22 Discontinued Reported Medications Famotidine (Famotidine) 20 Mg Tab, 20 MG PO BID for 30 Days, MG 07/01/22 Amiodarone Hcl (Amiodarone Hcl) 200 Mg Tab, 200 MG PO DAILY for 30 Days 07/01/22 Metoprolol Tartrate (Metoprolol Tartrate) 25 Mg Tab, 0.5 TAB PO BID, #180 TAB 1 Refill 07/01/22 Cholecalciferol (VITAMIN D3) 2,000 Unit Tab, 1 TAB PO DAILY, #30 TAB 5 Refills 07/01/22 Albuterol Sulfate (VENTOLIN MDI) 90 Mcg Ih, 90 MCG IN Q6HP PRN for SHORTNESS OF BREATH for 30 Days, MCG 04/01/20 Amlodipine Besylate (Amlodipine Besylate) 5 Mg Tab, 5 MG PO DAILY for 30 Days, MG 04/01/20 Current Medications Current Medications Medications (Trade) Dose Ordered Sig/Carroll Route PRN Reason Start Time Stop Time Status Last Admin Amiodarone HCl (Cordarone Tablet) 200 mg DAILY PO 08/20/25 10:00 Furosemide (Lasix Tablet) 20 mg DAILY PO 08/20/25 10:00 08/20/25 10:27 Spironolactone (Aldactone) 25 mg DAILY PO 08/20/25 10:00 08/20/25 10:11 Metoprolol Tartrate (Lopressor Tablet) 12.5 mg BID PO 08/19/25 22:00 Acetaminophen/ Hydrocodone Bitart ([place] 5/325MG Tab) 1 tab Q6HPRN PRN PO MODERATE PAIN (4-6 PAIN SCALE) 08/20/25 05:00 08/20/25 05:22 Rifaximin (Xifaxan) 550 mg BID PO 08/20/25 14:30 08/20/25 15:10 Lactulose 30 ml BID PO 08/20/25 14:58 08/20/25 15:11 Polyethylene Glycol (Miralax 17GM Powder) 17 gm DAILY PO 08/21/25 10:00 Zirconium Oxide (Lokelma) 10 gm DAILY PO 08/20/25 15:15 08/20/25 15:16 Pantoprazole Sodium (Protonix Tablet) 40 mg DAILY PO 08/21/25 10:00 08/20/25 17:26 DC Pantoprazole Sodium 50 ml @ 10 mls/hr Q5H IV 08/20/25 17:24 08/20/25 19:08 Review of Systems Noncontributory Vital Signs Vital Signs Date Time Temp Pulse Resp B/P (MAP) Pulse Ox O2 Delivery O2 Flow Rate FiO2 08/20/25 19:42 91 Nasal Cannula 2.0 08/20/25 19:42 28 08/20/25 18:10 74 20 08/20/25 17:00 98.6 111/66 (81) 98.6 Physical Exam Moderately built and nourished female in no acute distress HEENT examination mild pallor no icterus Lungs are clear Cardiovascular unremarkable Abdomen soft slightly full without any rigidity or guarding no masses Extremities 1+ edema Neurological grossly intact Labs/Diagnostic Data Labs Test 08/20/25 17:09 08/20/25 10:40 08/20/25 10:12 08/20/25 06:31 Range/Units Hemoglobin 10.8 L 12.2-16.2 g/dL Hematocrit 34.0 #L 36.0-46.0 % Potassium Level 4.8 3.5-5.1 mmol/L Urine Sodium 22 L 40-220 mmol/L Ammonia 228 *H 11-32 umol/L White Blood Count 8.4 # 4.4-10.8 10^3/uL Red Blood Count 3.14 L 4.0-5.20 10^6/uL Mean Corpuscular Volume 96.8 80.0-100.0 fL Mean Corpuscular Hemoglobin 31.3 28.0-32.0 pg Mean Corpuscular Hemoglobin Concent 32.4 32.0-36.0 g/dL Red Cell Distribution Width 18.2 H 11.8-14.3 % Platelet Count 89 L 140-450 10^3/uL Mean Platelet Volume 8.3 6.9-10.8 fL Neutrophils (%) (Auto) 73.0 37.0-80.0 % Lymphocytes (%) (Auto) 9.7 L 10.0-50.0 % Monocytes (%) (Auto) 15.0 H 0.0-12.0 % Eosinophils (%) (Auto) 2.2 0.0-7.0 % Basophils (%) (Auto) 0.1 0.0-2.0 % Neutrophils # (Auto) 6.1 1.6-8.6 10 ^3/uL Lymphocytes # (Auto) 0.8 0.4-5.4 10 ^3/uL Monocytes # (Auto) 1.3 0-1.3 10 ^3/uL Eosinophils # (Auto) 0.2 0-0.8 10 ^3/uL Basophils # (Auto) 0 0-0.2 10 ^3/uL Nucleated Red Blood Cells 0.1 % Sodium Level 143 136-145 mmol/L Chloride Level 117 H 98-107 mmol/L Carbon Dioxide Level 18 L 20-31 mmol/L Anion Gap 8 5-15 Blood Urea Nitrogen 20 # 9-23 mg/dL Creatinine 1.44 H 0.550-1.02 mg/dL Glomerular Filtration Rate Calc 38 >90 mL/min BUN/Creatinine Ratio 13.9 10.0-20.0 Serum Glucose 87 74-106 mg/dL Calcium Level 7.7 L 8.7-10.4 mg/dL Lipase 82 H 12-53 U/L Test 08/19/25 22:26 08/19/25 15:05 08/19/25 13:24 08/19/25 11:36 Range/Units Prothrombin Time 14.3 H 9.3-11.8 sec Prothrombin Time INR 1.39 H 0.9-1.15 Activated Partial Thromboplast Time 33.8 24.5-34.5 SEC Urine Color Yellow Yellow Urine Clarity Clear Clear Urine pH 5.5 5.0-9.0 Urine Specific [place] 1.019 1.001-1.035 Urine Protein Negative Negative Urine Ketones Negative Negative Urine Blood Negative Negative /uL Urine Nitrite Negative Negative Urine Bilirubin Negative Negative Urine Urobilinogen Normal Negative mg/dL Urine Leukocyte Esterase Negative Negative /uL Urine RBC 1 0 - 4 /hpf Urine Microscopic WBC 1 0-5 /HPF Urine Squamous Epithelial Cells Few <5 /hpf Urine Bacteria None seen None Seen /hpf Urine Glucose Normal Normal mg/dL Total Bilirubin 0.6 0.2-1.0 mg/dL Direct Bilirubin 0.3 <0.3 mg/dL Aspartate Amino Transferase (AST) 37 13-40 U/L Alanine Aminotransferase (ALT) 19 7-40 U/L Alkaline Phosphatase 99 46-116 U/L Lactate Dehydrogenase 258 H 120-246 U/L Troponin I High Sensitivity 3 L </=34 ng/L Total Protein 4.1 L 5.7-8.2 g/dL Albumin 1.8 L 3.2-4.8 g/dL Iron Level 15 L 50-170 ug/dL Total Iron Binding Capacity 185 L 250-425 ug/dL Percent Iron Saturation 8.1 L 15-50 % Ferritin 73.1 10-291 ng/mL Vitamin B12 Level 4163 H 211-911 pg/mL Folic Acid 37.58 >5.38 ng/mL Test 08/19/25 10:44 08/19/25 10:23 Range/Units POC Glucose 90 70-106 mg/dl Reticulocyte Count (auto) 3.89 H 0.5-1.5 % Lactic Acid Level 1.9 0.4-2.0 mmol/L Microbiology Date/Time Source Procedure Growth Status 08/19/25 10:23 Blood Blood Culture - Preliminary NO GROWTH AFTER 24 HOURS OF INCUBATION. Resulted Assessment 75-year-old with a history of hypertension anemia history of proper liver disease and history of pancreatic cyst in the past history of moderate drinking as well as smoking in the past Came in with hypotension and severe anemia with a hemoglobin of 5.3 has complaints of black stools Ultrasound showed cirrhosis of the liver Clinical impression GI bleeding Possible upper GI bleeding with black stools possibility of esophageal varices can not be excluded Patient also has got some mild pancreatitis with lipase elevation liver enzymes are normal Plan/Recommendation We will recommend EGD evaluation Follow hemoglobin closely Follow LFTs Ammonia level We will also recommend a CT scan of the abdomen and pelvis with at least oral contrast especially because of the history of pancreatic cyst and renal cyst in the past Her overall prognosis is guarded Thank you Dr. Yesica Hutchison discussed with: Patient TAJ YATES MD Aug 20, 2025 20:51
[2025-08-20] MEDS ORDERED: PANTOPRAZOLE 40mg/50ML NS AE 50 ML IV ONE (22:00)
[2025-08-21] VITALS (12 sets, daily range): BP systolic 109–126; BP diastolic 63–78; PULSE 71–85; RESP 16–18; TEMP 97.6–98.9; O2SAT 92–100
[2025-08-21 06:32] LABS: Hematocrit 27.8 % (36.0-46.0); Hemoglobin 9.4 g/dL (12.2-16.2); Mean Corpuscular Hemoglobin 32.2 pg (28.0-32.0); Mean Corpuscular Volume 95.9 fL (80.0-100.0); Nucleated Red Blood Cells % 0.1 %
[2025-08-21 06:36] LABS: Alanine Aminotransferase 22 U/L (7-40); Alkaline Phosphatase 100 U/L (46-116); Anion Gap 9 (5-15); BUN/Creatinine Ratio 14.0 (10.0-20.0); Blood Urea Nitrogen 19 mg/dL (9-23); Glucose 85 mg/dL (74-106); Potassium 5.1 mmol/L (3.5-5.1)
[2025-08-21 06:37] LABS: Bilirubin, Total 1.2 mg/dL (0.2-1.0)
[2025-08-21 06:39] LABS: Albumin 2.0 g/dL (3.2-4.8); Calcium 7.8 mg/dL (8.7-10.4); Carbon Dioxide 19 mmol/L (20-31); Chloride 118 mmol/L (98-107); Sodium 146 mmol/L (136-145); Total Protein 4.4 g/dL (5.7-8.2)
[2025-08-21 06:47] LABS: INR 1.44 (0.9-1.15); Partial Thromboplastin Time 34.0 SEC (24.5-34.5); Prothrombin Time 14.7 sec (9.3-11.8)
[2025-08-21] MEDS ORDERED: ONDANSETRON HCL 4 MG/2 ML VIAL ONE (09:38)
[2025-08-21] MEDS ORDERED: METOCLOPRAMIDE HCL 5MG/ml INJ 2ml VIAL ONE (09:38)
[2025-08-21] MEDS ORDERED: LIDOCAINE 2% (LOCAL ANESTH.) PF 5ml SDV ONE (09:38)
[2025-08-21] MEDS ORDERED: PROPOFOL 10 MG/ML 20 ML IV ONE (09:39)
[2025-08-21] MEDS ORDERED: PANTOPRAZOLE 40 MG TAB PO SCH (10:00)
[2025-08-21] MEDS: POLYETHYLENE GLYCOL 17 GM PWDR PO SCH (10:00)
--- NOTE | 2025-08-21 10:05 | DVHOP2 ---
Operative Report DATE OF PROCEDURE: 08/21/25 INDICATIONS FOR THE PROCEDURE: Abdominal Pain black stools anemia COPD PROCEDURE PERFORMED: 1. Esophagogastroduodenoscopy and biopsy with cold biopsy forceps POSTOPERATIVE DIAGNOSIS: Hiatal hernia Esophagitis LA classification B Gastric ulcer pre-pyloric on the greater curve aspect what 15 mm without any gross bleeding now but some old blood seen possible source of bleeding INFORMED CONSENT: The risks and benefits and alternatives were explained to the patient and informed consent was obtained. PROCEDURE IN DETAIL: The patient was kept NPO after midnight. In the endoscopy room, she was given MAC to get her sedated. Olympus gastroscope was passed through the oropharynx into the stomach and the duodenum, and the findings were as follows. Esophagus: 1Cm hiatal hernia Esophagitis LA classification B No esophageal ulcer No Esophageal stricture Stomach: Fundus: Retroflexed and visualized and normal Body and antrum Antral ulcer of about 15 mm on the greater curve aspect in the pre-pyloric area No active bleeding no visible vessel some old blood possibly from more removed bleeding cleaned out grossly normal otherwise Pylorus normal Duodenum Normal Endoscopic impression Hiatal hernia Esophagitis LA classification B Gastric ulcer pre-pyloric on the greater curve aspect what 15 mm without any gross bleeding now but some old blood seen possible source of bleeding Suggestions Await the biopsy results including for H pylori Follow the hemoglobin closely Treat with PPIs Needs repeat evaluation three months after aggressive treatment with the cecum to ensure there is healing of the ulcer especially if the anemia persist Thank you for asking me to take part in the care of this pleasant patient With warm regards, TAJ Barreto MD Aug 21, 2025 10:05
--- NOTE | 2025-08-21 17:00 | DVHPNRES ---
Progress Note Date Seen: Aug 21, 2025 Resident Creating Document: RODOLFO ORO RESIDENT Medical Necessity Reason Pt with a Central, PICC or Fol: No Subjective Review of Systems Brief history on arrival: This is a 75-year-old female with past medical history of liver cirrhosis, hepatitis-C infection, COPD, hypertension, CKD, drug use in past, was brought to the ER by EMS with chief complain of altered mental status and hypotension. Patient reportedly took her muscle relaxant (tizanidine) in the morning instead of HS, leaving her in coherent. Patient also help of her neighbor, and was taken to her PCP. She received results from her lab work of last week showing elevated creatinine. Her vitals with at the PCP's office showed low blood pressure, urging her PCP to call EMS. Patient reported feeling dizzy, nauseous and complained of blurry vision. She complained of gait disturbance, reporting, "my PCP also felt like I was walking differently". She did not lose consciousness or hit her head. Patient denies fever, chills, vomiting, melena. PMHx: Liver cirrhosis, hepatitis-C infection, COPD, hypertension, CKD, drug abuse, multiple cysts in the pancreas, kidney PSHx: Cholecystectomy, section Family history: Noncontributory Social history: She reportedly quit smoking and drug use. Occasional use of alcohol and marijuana. Lives in house with family. Home medication: Rifaximin, furosemide, spironolactone, tizanidine, lactulose Allergic history: No known allergies ROS: Constitutional: Altered mental status. Denies weight loss, fever and chills. HEENT: Denies changes in vision and hearing. Respiratory: Denies shortness of breath and cough Cardiovascular: Denies chest discomfort or palpitations GI: Denies abdominal pain, nausea, vomiting and diarrhea. : Denies dysuria and urinary frequency. Musculoskeletal: Denies myalgias and joint pain Skin: Denies rash and pruritus. Neurological: Dizziness, blurry vision; denies headache, vision or hearing problems 08/20/25: Patient was seen at bedside today. Patient reports improvement in her symptoms. 08/21/25: Patient seen at bedside. Hemoglobin 9.4, potassium 5.1. EGD done today. Revealed hiatal hernia, esophagitis and pre-pyloric gastric ulcer on the greater curvature of the stomach. Awaiting biopsy results. Objective vital signs Vital Sign Date Time Temp Pulse Resp B/P (MAP) Pulse Ox O2 Delivery O2 Flow Rate FiO2 08/21/25 13:00 73 106/60 08/21/25 13:00 98.4 18 92 98.4 08/21/25 09:54 Mask 6.0 100 Total Intake and Output 08/20/25 08/20/25 08/21/25 15:00 23:00 07:00 Intake Total 480 ml 850 ml Balance 480 ml 850 ml medications Current Medications Medications Dose Ordered Sig/Carroll Route Start Time Stop Time Status Last Admin Dose Admin Amiodarone HCl 200 mg DAILY PO 08/20/25 10:00 Albuterol 2.5 mg Q6HPRN PRN NEB 08/19/25 14:30 Ondansetron HCl 4 mg Q4HP PRN IV 08/19/25 14:30 Furosemide 20 mg DAILY PO 08/20/25 10:00 08/21/25 11:59 20 MG Spironolactone 25 mg DAILY PO 08/20/25 10:00 08/21/25 11:58 25 MG Metoprolol Tartrate 12.5 mg BID PO 08/19/25 22:00 08/21/25 12:00 12.5 MG Acetaminophen/ Hydrocodone Bitart 1 tab Q6HPRN PRN PO 08/20/25 05:00 08/20/25 22:04 1 TAB Rifaximin 550 mg BID PO 08/20/25 14:30 08/21/25 11:58 550 MG Lactulose 30 ml BID PO 08/20/25 14:58 08/21/25 11:59 30 ML Polyethylene Glycol 17 gm DAILY PO 08/21/25 10:00 Zirconium Oxide 10 gm DAILY PO 08/20/25 15:15 08/21/25 12:00 10 GM Pantoprazole Sodium 50 ml @ 10 mls/hr Q5H IV 08/20/25 17:24 08/21/25 05:45 10 MLS/HR Examination General: Patient alert and oriented in person, place and time. Patient following commands. HEENT: Normocephalic, atraumatic, moist mucous membranes Respiratory/pulmonary: Expiratory wheeze heard in posterior lung price Cardiovascular: S1, S2, S3 heard with no associated murmurs Abdomen: No abdominal distention, no tenderness on palpation. Dullness to percussion in right upper quadrant. Extremities: There is no peripheral edema present at the lower extremities. Peripheral Pulses: 3+ Radial (R). 3+ Radial (L). 3+ Dorsalis pedis (R). 3+ Dorsalis pedis(L) Skin: No rashes or pruritus, there is no sacral edema present at this time. Neurological: Intact cranial nerves with no focal neurologic deficits Rectal exam: Patient refused consent for rectal exam previously laboratory and microbiology Laboratory Tests 08/21/25 05:39 Test 08/21/25 05:39 Range/Units Serum Glucose 85 74-106 mg/dL Microbiology Date/Time Source Procedure Growth Status 08/19/25 10:23 Blood Blood Culture - Preliminary NO GROWTH AFTER 48 HOURS OF INCUBATION. Resulted Problem List/Assessment/Plan Problem List/Assessment/Plan Assessment and plan Severe symptomatic anemia Esophageal varices, possible GI hemorrhage Refused rectal exam P.o. Protonix SOB ordered Patient's hemoglobin was 5.3 on arrival, pRBC given Hemoglobin has normalized; continue monitoring H&H GI on board, EGD today Revealed hiatal hernia, esophagitis, pre-pyloric gastric ulcer on the greater curvature of the stomach without gross bleeding Awaiting biopsy results Liver cirrhosis Hepatic encephalopathy, resolving Hypoalbuminemia Hyperammonemia Portal hypertension Hepatitis-C infection Altered mental status due to above Meld score 14 Ultrasound right upper quadrant shows hepatic cirrhosis with varices Continue furosemide, lactulose, rifaximin, spironolactone Chronic respiratory failure On 3 L oxygen at home COPD without exacerbation Hypertension Continue furosemide, spironolactone MOLLY on CKD, hemodynamically mediated due to VMN Hepatorenal syndrome, possible Hyperkalemia Hyperkalemia protocol ordered EKG obtained shows no T-wave changes Discussed avoiding nephrotoxins like NSAIDS, contrast Ordered urine sodium Repeat BMP History of Drug abuse History of Multiple cysts in the pancreas, kidney Code status: Full code Discussed code status with patient and son for more than 15 minutes DIET: Hepatic diet DVT PROPHYLAXIS: Holding off DVT prophylaxis with Lovenox, SCD ordered GI PROPHYLAXIS: Protonix CODE STATUS: Goals of care discussed with patient at bedside for more than 40 minutes. Spoke to the son Mr. Horan ([phone]) regarding diagnosis and plan in great detail for 25 minutes. Full code DISPOSITION: Telemetry This medical document was created using an electronic medical record system with [employer] direct computerized dictation system. Although this document has been carefully reviewed, there may still be some phonetic and typographical errors. These areas are purely typographical due to imperfections of the software programs, and do not reflect any compromise in the patient's medical care. Patient's status and plan discussed with the patient. Case discussed with Dr. Mansfield Plan discussed with: Patient My Orders My Orders Orders - RODOLFO ORO Procedure Category Date Status Time Complete Blood Count LAB 08/22/25 Verified 04:00 Comprehensive LAB 08/22/25 Verified Metabolic Panel 04:00 CC Plasma Assessment Blood Product Administration S: 1700 Date of Service: Aug 21, 2025 Billing Provider: NORMAN MANSFIELD MD Common Visit Codes: [id number] INP/OBS CARE(HIGH) RODOLFO ORO RESIDENT Aug 21, 2025 17:00 NORMAN MANSFIELD MD Aug 22, 2025 09:01
[2025-08-22] VITALS (12 sets, daily range): BP systolic 113–134; BP diastolic 57–87; PULSE 60–87; RESP 16–20; TEMP 97.5–98.6; O2SAT 80–100
[2025-08-22 10:32] LABS: Hematocrit 30.2 % (36.0-46.0); Hemoglobin 10.1 g/dL (12.2-16.2); Mean Corpuscular Hemoglobin 32.3 pg (28.0-32.0); Mean Corpuscular Volume 96.8 fL (80.0-100.0); Nucleated Red Blood Cells % 0.0 %
[2025-08-22 10:50] LABS: Alanine Aminotransferase 27 U/L (7-40); Alkaline Phosphatase 106 U/L (46-116); Anion Gap 9 (5-15); BUN/Creatinine Ratio 13.9 (10.0-20.0); Blood Urea Nitrogen 17 mg/dL (9-23); Carbon Dioxide 22 mmol/L (20-31); Potassium 4.3 mmol/L (3.5-5.1)
[2025-08-22 10:51] LABS: Albumin 2.0 g/dL (3.2-4.8); Bilirubin, Total 1.3 mg/dL (0.2-1.0); Calcium 8.0 mg/dL (8.7-10.4); Chloride 116 mmol/L (98-107); Glucose 137 mg/dL (74-106); Sodium 147 mmol/L (136-145); Total Protein 4.6 g/dL (5.7-8.2)
[2025-08-22] MEDS: SODIUM CHLORIDE 0.9% 1,000 ML IV ONE (12:29)
--- NOTE | 2025-08-22 13:15 | ECG ---
[facility] Test Date: 2025-08-20 Test Time: 08:32:22 Pat Name: AUGUSTIN DAVIS Department: Room: 0290T B Gender: F [employer] Specialist: earlene polk : 1950 Requested By: SOPHIA LUU Order Number: [id number] Reading MD: Isael Gurrola Measurements Intervals Stewart Rate: 72 P: 75 NE: 161 QRS: 77 QRSD: 119 T: 51 QT: 396 QTc: 434 Interpretive Statements Sinus rhythm Atrial premature complex Nonspecific intraventricular conduction delay Anteroseptal infarct, age indeterminate Electronically Signed On 08-24-2025 17:12:32 PST by Isael Gurrola Please click the below link to view image of tracing.
--- NOTE | 2025-08-22 17:14 | DVHPNRES ---
Progress Note Date Seen: Aug 22, 2025 Resident Creating Document: SOPHIA LUU RESIDENT Medical Necessity Reason Pt with a Central, PICC or Fol: No Subjective Review of Systems Brief history on arrival: This is a 75-year-old female with past medical history of liver cirrhosis, hepatitis-C infection, COPD, hypertension, CKD, drug use in past, was brought to the ER by EMS with chief complain of altered mental status and hypotension. Patient reportedly took her muscle relaxant (tizanidine) in the morning instead of HS, leaving her in coherent. Patient also help of her neighbor, and was taken to her PCP. She received results from her lab work of last week showing elevated creatinine. Her vitals with at the PCP's office showed low blood pressure, urging her PCP to call EMS. Patient reported feeling dizzy, nauseous and complained of blurry vision. She complained of gait disturbance, reporting, "my PCP also felt like I was walking differently". She did not lose consciousness or hit her head. Patient denies fever, chills, vomiting, melena. PMHx: Liver cirrhosis, hepatitis-C infection, COPD, hypertension, CKD, drug abuse, multiple cysts in the pancreas, kidney PSHx: Cholecystectomy, section Family history: Noncontributory Social history: She reportedly quit smoking and drug use. Occasional use of alcohol and marijuana. Lives in house with family. Home medication: Rifaximin, furosemide, spironolactone, tizanidine, lactulose Allergic history: No known allergies ROS: Constitutional: Altered mental status. Denies weight loss, fever and chills. HEENT: Denies changes in vision and hearing. Respiratory: Denies shortness of breath and cough Cardiovascular: Denies chest discomfort or palpitations GI: Denies abdominal pain, nausea, vomiting and diarrhea. : Denies dysuria and urinary frequency. Musculoskeletal: Denies myalgias and joint pain Skin: Denies rash and pruritus. Neurological: Dizziness, blurry vision; denies headache, vision or hearing problems 08/20/25: Patient was seen at bedside. Patient reports improvement in her symptoms. 08/21/25: Patient seen at bedside. Hemoglobin 9.4, potassium 5.1. EGD done today. Revealed hiatal hernia, esophagitis and pre-pyloric gastric ulcer on the greater curvature of the stomach. Awaiting biopsy results. 08/22/2025: Patient was seen at bedside. Hemoglobin went up to 10, MOLLY continues to resolve. Echo ordered Objective vital signs Vital Sign Date Time Temp Pulse Resp B/P (MAP) Pulse Ox O2 Delivery O2 Flow Rate FiO2 08/22/25 16:43 98.6 87 20 124/84 (97) 99 98.6 08/22/25 08:58 2.0 08/22/25 08:10 Nasal Cannula* 28 Total Intake and Output 08/21/25 08/21/25 08/22/25 15:00 23:00 07:00 Intake Total 470 ml 325 ml Balance 470 ml 325 ml medications Current Medications Medications Dose Ordered Sig/Carroll Route Start Time Stop Time Status Last Admin Dose Admin Amiodarone HCl 200 mg DAILY PO 08/20/25 10:00 Albuterol 2.5 mg Q6HPRN PRN NEB 08/19/25 14:30 Cancel Ondansetron HCl 4 mg Q4HP PRN IV 08/19/25 14:30 Furosemide 20 mg DAILY PO 08/20/25 10:00 08/22/25 11:13 20 MG Spironolactone 25 mg DAILY PO 08/20/25 10:00 08/22/25 11:13 25 MG Metoprolol Tartrate 12.5 mg BID PO 08/19/25 22:00 08/22/25 11:14 12.5 MG Acetaminophen/ Hydrocodone Bitart 1 tab Q6HPRN PRN PO 08/20/25 05:00 08/22/25 11:29 1 TAB Rifaximin 550 mg BID PO 08/20/25 14:30 08/22/25 11:13 550 MG Lactulose 30 ml BID PO 08/20/25 14:58 08/22/25 11:14 30 ML Polyethylene Glycol 17 gm DAILY PO 08/21/25 10:00 Zirconium Oxide 10 gm DAILY PO 08/20/25 15:15 08/22/25 11:14 10 GM Pantoprazole Sodium 50 ml @ 10 mls/hr Q5H IV 08/20/25 17:24 08/22/25 12:15 10 MLS/HR Enteral Nutritional Formula 240 ml BIDWM PO 08/22/25 18:00 Examination General: Patient alert and oriented in person, place and time. Patient following commands. HEENT: Normocephalic, atraumatic, moist mucous membranes Respiratory/pulmonary: Clear breath sounds bilaterally Cardiovascular: S1, S2, S3 heard with no associated murmurs Abdomen: No abdominal distention, no tenderness on palpation. Dullness to percussion in right upper quadrant. Extremities: There is no peripheral edema present at the lower extremities. Peripheral Pulses: 3+ Radial (R). 3+ Radial (L). 3+ Dorsalis pedis (R). 3+ Dorsalis pedis(L) Skin: No rashes or pruritus, there is no sacral edema present at this time. Neurological: Intact cranial nerves with no focal neurologic deficits laboratory and microbiology Laboratory Tests 08/22/25 09:31 Test 08/22/25 09:31 Range/Units Serum Glucose 137 H 74-106 mg/dL Microbiology Date/Time Source Procedure Growth Status 08/19/25 10:23 Blood Blood Culture - Preliminary NO GROWTH AFTER 72 HOURS OF INCUBATION. Resulted Problem List/Assessment/Plan Problem List/Assessment/Plan Severe symptomatic anemia Esophageal varices, possible GI hemorrhage Refused rectal exam P.o. Protonix SOB ordered Patient's hemoglobin was 5.3 on arrival, pRBC given Hemoglobin up trending; continue monitoring H&H GI on board, EGD shows antral ulcer, no active bleeding. Old bleed from ulcer; biopsy samples taken Liver cirrhosis Hepatic encephalopathy, resolving Hypoalbuminemia Hyperammonemia, resolved Portal hypertension Hepatitis-C infection Altered mental status due to above Meld score 14 Ultrasound right upper quadrant shows hepatic cirrhosis with varices Continue furosemide, lactulose, rifaximin, spironolactone Chronic respiratory failure On 3 L oxygen at home COPD without exacerbation Hypertension Continue furosemide, spironolactone MOLLY on CKD, hemodynamically mediated due to VMN Hepatorenal syndrome, possible Hyperkalemia, resolved Hyperkalemia protocol ordered EKG obtained shows no T-wave changes Discussed avoiding nephrotoxins like NSAIDS, contrast Ordered urine sodium Repeat BMP Echo ordered History of Drug abuse History of Multiple cysts in the pancreas, kidney Code status: Full code Discussed code status with patient and son for more than 15 minutes DIET: Hepatic diet DVT PROPHYLAXIS: Holding off DVT prophylaxis with Lovenox, SCD ordered GI PROPHYLAXIS: Protonix CODE STATUS: Goals of care discussed with patient at bedside for more than 40 minutes. Spoke to the son Mr. Horan ([phone]) regarding diagnosis and plan in great detail for 25 minutes. Full code DISPOSITION: Telemetry This medical document was created using an electronic medical record system with [employer] direct computerized dictation system. Although this document has been carefully reviewed, there may still be some phonetic and typographical errors. These areas are purely typographical due to imperfections of the software programs, and do not reflect any compromise in the patient's medical care. Patient's status and plan discussed with the patient. Case discussed with Dr. Mansfield Plan discussed with: Patient, Son, Other (Nurses) My Orders My Orders Orders - SOPHIA LUU RESIDENT Procedure Category Date Status Time Comprehensive LAB 08/23/25 Verified Metabolic Panel 04:00 Complete Blood Count LAB 08/23/25 Verified 04:00 CC Plasma Assessment Blood Product Administration S: 1700 Date of Service: Aug 22, 2025 Billing Provider: NORMAN MANSFIELD MD Common Visit Codes: [id number] INP/OBS CARE(HIGH) SOPHIA LUU RESIDENT Aug 22, 2025 17:14 NORMAN MANSFIELD MD Aug 22, 2025 22:51
[2025-08-22] MEDS: Ensure HIGH Protein Chocolate 8oz Bottle PO SCH (18:23)
--- NOTE | 2025-08-22 20:52 | DVHSR ---
APPROVED REPORT EXAM: Two-dimensional and M-mode echocardiogram with Doppler and color Doppler. Blood Pressure: 132/57 mmHg INDICATION High BNP SOB RISK FACTORS Height: 5' 3", Weight: 148 DIMENSIONS LVDd 4.3 (3.8-5.7cm) LA (2D) 3.7 (1.9-4.0cm) Aortic Root 3.2 (2.0-3.7cm) LVDs 3.1 (2.5-4.0cm) LA (MM) (1.9-4.0cm) Aortic Cusp Exc 1.6 (1.5-2.0cm) EF (%) 55.0 (55-70%) Rt. Atrium 4.0 (1.9-4.0cm) Asc. Aorta cm IVSd 1.0 (0.7-1.1cm) RV (D) (1.8-2.4cm) PWd 0.9 (0.7-1.1cm) Mitral Valve Mitral Mitral Stenosis E wave 1.10m/s MV Mean GR. mmHg A wave 0.80m/s MV Peak GR. mmHg E/A ratio 1.4 2D MVA cm2 Aortic Valve Aortic Valve Aortic Stenosis V1 1.30m/s AO Mean GR. 5mmHg V2 1.50m/s AO Peak GR. 10mmHg LVOT Diameter 2.3 (1.8-2.4cm) Doppler KELLEY 3.60cm2 Pulmonic Valve V2 0.70m/s Tricuspid Valve TR Velocity 3.00m/s RVSP 43mmHg Conclusion MODERATELY DILATED RV AND RA RV IS HYPOKINETIC RVSP IS 43 MM OF HG AND IS HIGH STUDY REVEAL CHRONIC AND OR ACUTE RV STRAIN PATTERN WITH MODERATE DEGREE PULMONARY HYPERTENSION LV EF IS 60% AND IS NORMAL MODERATE DEGREE MR AND TR NORMAL VALVES NO EFFUSION
[2025-08-23 01:10] VITALS: BP 124/69; PULSE 90; RESP 17; TEMP 97.6; O2SAT 100
[2025-08-23 05:00] VITALS: BP 111/62; PULSE 60; RESP 16; TEMP 97.2; O2SAT 98
[2025-08-23 07:28] LABS: Hematocrit 27.5 % (36.0-46.0); Hemoglobin 9.4 g/dL (12.2-16.2); Mean Corpuscular Hemoglobin 33.2 pg (28.0-32.0); Mean Corpuscular Volume 96.6 fL (80.0-100.0); Nucleated Red Blood Cells % 0.1 %
[2025-08-23 07:34] LABS: Alanine Aminotransferase 23 U/L (7-40); Alkaline Phosphatase 104 U/L (46-116); Anion Gap 7 (5-15); BUN/Creatinine Ratio 10.6 (10.0-20.0); Blood Urea Nitrogen 12 mg/dL (9-23); Carbon Dioxide 24 mmol/L (20-31); Glucose 94 mg/dL (74-106); Potassium 4.4 mmol/L (3.5-5.1)
[2025-08-23 07:35] LABS: Bilirubin, Total 1.0 mg/dL (0.2-1.0)
[2025-08-23 07:44] LABS: Albumin 1.8 g/dL (3.2-4.8); Calcium 7.6 mg/dL (8.7-10.4); Chloride 115 mmol/L (98-107); Sodium 146 mmol/L (136-145); Total Protein 4.3 g/dL (5.7-8.2)
[2025-08-23 08:00] VITALS: PULSE 63; PULSE 76; RESP 16; O2SAT 98
[2025-08-23 08:54] VITALS: BP 111/78; PULSE 63; RESP 16; TEMP 98.2; O2SAT 98
[2025-08-23] MEDS: PANTOPRAZOLE 40 MG TAB PO ONE (09:19)
[2025-08-23 12:52] VITALS: BP 117/68; PULSE 60; RESP 16; TEMP 97.9; O2SAT 93
[2025-08-23] MEDS ORDERED: SPIR50TA5 PO (13:07)
[2025-08-23] MEDS ORDERED: FURO20TA4 PO (13:07)
[2025-08-23] MEDS ORDERED: PANT40T PO (13:07)
[2025-08-23] MEDS ORDERED: PANTOPRAZOLE 40 MG TAB PO SCH (17:00)
--- NOTE | 2025-08-23 19:36 | DVHDSRES ---
Discharge Summary Date of Admission Resident Creating Document: SOPHIA LUU RESIDENT Aug 19, 2025 at 14:24 Date of Discharge: Aug 23, 2025 Admitting Diagnosis Acute pulmonary edema Labs/Diagnostic Data: Laboratory Results Test 08/23/25 06:16 08/22/25 09:31 08/21/25 05:39 08/20/25 10:40 White Blood Count 10.5 10^3/uL (4.4-10.8) Red Blood Count 2.85 10^6/uL (4.0-5.20) Hemoglobin 9.4 g/dL (12.2-16.2) Hematocrit 27.5 % (36.0-46.0) Mean Corpuscular Volume 96.6 fL (80.0-100.0) Mean Corpuscular Hemoglobin 33.2 pg (28.0-32.0) Mean Corpuscular Hemoglobin Concent 34.4 g/dL (32.0-36.0) Red Cell Distribution Width 17.2 % (11.8-14.3) Platelet Count 83 10^3/uL (140-450) Mean Platelet Volume 8.7 fL (6.9-10.8) Neutrophils (%) (Auto) 62.4 % (37.0-80.0) Lymphocytes (%) (Auto) 15.0 % (10.0-50.0) Monocytes (%) (Auto) 18.3 % (0.0-12.0) Eosinophils (%) (Auto) 3.9 % (0.0-7.0) Basophils (%) (Auto) 0.4 % (0.0-2.0) Neutrophils # (Auto) 6.5 10 ^3/uL (1.6-8.6) Lymphocytes # (Auto) 1.6 10 ^3/uL (0.4-5.4) Monocytes # (Auto) 1.9 10 ^3/uL (0-1.3) Eosinophils # (Auto) 0.4 10 ^3/uL (0-0.8) Basophils # (Auto) 0 10 ^3/uL (0-0.2) Nucleated Red Blood Cells 0.1 % Sodium Level 146 mmol/L (136-145) Potassium Level 4.4 mmol/L (3.5-5.1) Chloride Level 115 mmol/L (98-107) Carbon Dioxide Level 24 mmol/L (20-31) Anion Gap 7 (5-15) Blood Urea Nitrogen 12 mg/dL (9-23) Creatinine 1.13 mg/dL (0.550-1.02) Glomerular Filtration Rate Calc 51 mL/min (>90) BUN/Creatinine Ratio 10.6 (10.0-20.0) Serum Glucose 94 mg/dL (74-106) Calcium Level 7.6 mg/dL (8.7-10.4) Total Bilirubin 1.0 mg/dL (0.2-1.0) Aspartate Amino Transferase (AST) 42 U/L (13-40) Alanine Aminotransferase (ALT) 23 U/L (7-40) Alkaline Phosphatase 104 U/L (46-116) Total Protein 4.3 g/dL (5.7-8.2) Albumin 1.8 g/dL (3.2-4.8) Ammonia 28 umol/L (11-32) B-Type Natriuretic Peptide 485.20 pg/mL (0-100) Prothrombin Time 14.7 sec (9.3-11.8) Prothrombin Time INR 1.44 (0.9-1.15) Activated Partial Thromboplast Time 34.0 SEC (24.5-34.5) Urine Sodium 22 mmol/L (40-220) Test 08/20/25 06:31 08/19/25 15:05 08/19/25 13:24 08/19/25 11:36 Lipase 82 U/L (12-53) Urine Color Yellow (Yellow) Urine Clarity Clear (Clear) Urine pH 5.5 (5.0-9.0) Urine Specific [place] 1.019 (1.001-1.035) Urine Protein Negative (Negative) Urine Ketones Negative (Negative) Urine Blood Negative /uL (Negative) Urine Nitrite Negative (Negative) Urine Bilirubin Negative (Negative) Urine Urobilinogen Normal mg/dL (Negative) Urine Leukocyte Esterase Negative /uL (Negative) Urine RBC 1 /hpf (0 - 4) Urine Microscopic WBC 1 /HPF (0-5) Urine Squamous Epithelial Cells Few /hpf (<5) Urine Bacteria None seen /hpf (None Seen) Urine Glucose Normal mg/dL (Normal) Direct Bilirubin 0.3 mg/dL (<0.3) Lactate Dehydrogenase 258 U/L (120-246) Troponin I High Sensitivity 3 ng/L (</=34) Iron Level 15 ug/dL (50-170) Total Iron Binding Capacity 185 ug/dL (250-425) Percent Iron Saturation 8.1 % (15-50) Ferritin 73.1 ng/mL (10-291) Vitamin B12 Level 4163 pg/mL (211-911) Folic Acid 37.58 ng/mL (>5.38) Test 08/19/25 10:44 08/19/25 10:23 POC Glucose 90 mg/dl (70-106) Reticulocyte Count (auto) 3.89 % (0.5-1.5) Lactic Acid Level 1.9 mmol/L (0.4-2.0) Other Laboratory Tests 08/23/25 06:16 Brief Hx & Hospital Course: This is a 75-year-old female with past medical history of liver cirrhosis, hepatitis-C infection, COPD, hypertension, CKD, drug use in past, was brought to the ER by EMS with chief complain of altered mental status and hypotension. Patient reportedly took her muscle relaxant (tizanidine) in the morning instead of HS, leaving her incoherent. She received results from her lab work of last week showing elevated creatinine. Her vitals with at the PCP's office showed low blood pressure, urging her PCP to call EMS. Patient reported feeling dizzy, nauseous and complained of blurry vision. She complained of gait disturbance, reporting, "my PCP also felt like I was walking differently". She did not lose consciousness or hit her head. Hemoglobin on admission was 9.8 patient reported noticing specks of blood in her stool occasionally. EGD revealed esophagitis and hiatal hernia. Hemoglobin remained stable. Protonix 40 mg p.o. b.i.d. was given. Patient reported considerable improvement in her symptoms. Her MOLLY continued to resolve with a downtrending creatinine. All medications and recommendations were thoroughly explained to the patient and she demonstrated understanding of the same. She was recommended to follow-up in discharge Clinic and with PCP in 1-2 weeks. PMHx: Liver cirrhosis, hepatitis-C infection, COPD, hypertension, CKD, drug abuse, multiple cysts in the pancreas, kidney PSHx: Cholecystectomy, section Family history: Noncontributory Social history: She reportedly quit smoking and drug use. Occasional use of alcohol and marijuana. Lives in house with family. Home medication: Rifaximin, furosemide, spironolactone, tizanidine, lactulose Allergic history: No known allergies Examination on day of discharge: General: Patient alert and oriented in person, place and time. Patient following commands. HEENT: Normocephalic, atraumatic, moist mucous membranes Respiratory/pulmonary: Clear breath sounds bilaterally Cardiovascular: S1, S2, S3 heard with no associated murmurs Abdomen: No abdominal distention, no tenderness on palpation. Dullness to percussion in right upper quadrant. Extremities: There is no peripheral edema present at the lower extremities. Peripheral Pulses: 3+ Radial (R). 3+ Radial (L). 3+ Dorsalis pedis (R). 3+ Dorsalis pedis(L) Skin: No rashes or pruritus, there is no sacral edema present at this time. Neurological: Intact cranial nerves with no focal neurologic deficits Operations or Procedures 1.PROCEDURE(s): CXRP - CHEST PORTABLE REASON: weakness ORDER NUMBER(s): [id number], ACCESSION NUMBER(s): [id number] CHEST RADIOGRAPH Indication: weakness Technique: Single frontal view of the chest was obtained COMPARISON: XY CHEST TWO VIEWS ROUTINE on DOS: 10/03/23, XY CHEST PORTABLE on DOS: 05/13/23, XY CHEST PORTABLE on DOS: 12/17/22, XY CHEST TWO VIEWS ROUTINE on DOS: 12/15/22, CXR1 on DOS: 11/09/22 FINDINGS: Cardiac silhouette is borderline in size. Slight prominence of the pulmonary vasculature and interstitium. No dense focal airspace disease. No significant pleural effusions. Bones and soft tissues demonstrate no significant abnormality. IMPRESSION: Mild pulmonary venous congestion. 2.PROCEDURE(s): ABDL - ABDOMEN LIMITED REASON: eval ruq, hx of cirrhosis ORDER NUMBER(s): [id number], ACCESSION NUMBER(s): [id number] INDICATION: eval ruq, hx of cirrhosis TECHNIQUE: Multiple real-time sonographic images of the abdomen were obtained. COMPARISON: US GALLBLADDER on DOS: 10/03/23, US ABDOMEN COMPLETE SONOGRAM on DOS: 05/13/23, ABDOMEN LIMITED on DOS: 06/30/22, ABDOMEN SINGLE ORGAN QUAD on DOS: 6/25/20 FINDINGS: The liver is heterogeneous in echogenicity. The liver measures 12cm. No intrahepatic biliary ductal dilatation is noted. The liver appears cirrhotic. Hepatofugal flow in the main portal vein with tortuous vessels and varices. The right kidney measures 9cm. No hydronephrosis. The pancreas is not well visualized due to obscuration from bowel gas. The visualized portions of the IVC and aorta are grossly unremarkable. IMPRESSION: Hepatic cirrhosis with varices. Main portal vein appears with hepatofugal flow and tortuous vess 3.Operative Report DATE OF PROCEDURE: 08/21/25 INDICATIONS FOR THE PROCEDURE: Abdominal Pain black stools anemia COPD PROCEDURE PERFORMED: 1. Esophagogastroduodenoscopy and biopsy with cold biopsy forceps POSTOPERATIVE DIAGNOSIS: Hiatal hernia Esophagitis LA classification B Gastric ulcer pre-pyloric on the greater curve aspect what 15 mm without any gross bleeding now but some old blood seen possible source of bleeding INFORMED CONSENT: The risks and benefits and alternatives were explained to the patient and informed consent was obtained. PROCEDURE IN DETAIL: The patient was kept NPO after midnight. In the endoscopy room, she was given MAC to get her sedated. Olympus gastroscope was passed through the oropharynx into the stomach and the duodenum, and the findings were as follows. Esophagus: 1Cm hiatal hernia Esophagitis LA classification B No esophageal ulcer No Esophageal stricture Stomach: Fundus: Retroflexed and visualized and normal Body and antrum Antral ulcer of about 15 mm on the greater curve aspect in the pre-pyloric area No active bleeding no visible vessel some old blood possibly from more removed bleeding cleaned out grossly normal otherwise Pylorus normal Duodenum Normal Endoscopic impression Hiatal hernia Esophagitis LA classification B Gastric ulcer pre-pyloric on the greater curve aspect what 15 mm without any gross bleeding now but some old blood seen possible source of bleeding Suggestions Await the biopsy results including for H pylori Follow the hemoglobin closely Treat with PPIs Condition at Discharge: Fair Final Diagnosis/Problems List Severe symptomatic anemia Acute GI bleed, likely due to esophageal varices MOLLY on CKD, hemodynamically mediated due to VMN Acute pulmonary edema Liver cirrhosis Hepatic encephalopathy Pulmonary hypertension Hypoalbuminemia Hyperammonemia, resolved Portal hypertension Hepatitis-C infection Altered mental status due to above Chronic respiratory failure due to COPD Hepatorenal syndrome, likely Hyperkalemia, resolved History of Drug abuse History of Multiple cysts in the pancreas, kidney Discharge Disposition: Home Discharge Instruct/Medications Diet: Cardiac 2g Na,low cholest Activity: No Restrictions, As Tolerated Follow Up/Referral: follow up in dc clinic in 1 week follow up with PCP in 1-2 weeks Scheduled Acetaminophen W/ Codeine (Tylenol W/Cod #3), 1 TAB PO BID, (Reported) Azithromycin (Azithromycin), 1 TAB PO DAILY Cholecalciferol (D3), 25 MCG PO DAILY, (Reported) Ciprofloxacin Hcl (Cipro), 1 TAB PO BID Cyanocobalamin (B12), 1,000 MCG PO DAILY, (Reported) Furosemide (Furosemide), 20 MG PO DAILY Lactulose (Lactulose), 30 GM PO BID Lactulose (Lactulose), 30 ML PO QID, (Reported) Pantoprazole Sodium Sesquihydr (Pantoprazole Sodium), 40 MG PO BID@0600,1700 Patients Own Medication (Patients Own Medication), 1 DROP RIGHTEYE QID Potassium Chloride (Potassium Chloride ER), 20 MEQ PO DAILY, (Reported) Prednisolone Acetate (Ophth) (Pred Forte), 1 % OP QID, (Reported) Rifaximin (Xifaxan), 550 MG PO BID, (Reported) Spironolactone (Spironolactone), 1 TAB PO DAILY Sucralfate (Carafate Susp), 1 GM PO BIDAC Tizanidine Hydrochloride (Zanaflex), 0.5 CAP PO QPM, (Reported) Scheduled PRN Hydrocodone-Acetaminophen (Hydrocodone/Acetaminophen 5-325 mg), 1 TAB PO BIDP PRN Discontinued Medications Albuterol Sulfate (Ventolin Mdi), 90 MCG IN Q6HP PRN for SHORTNESS OF BREATH, (Reported) Amiodarone Hcl (Amiodarone Hcl), 200 MG PO DAILY, (Reported) Amlodipine Besylate (Amlodipine Besylate), 5 MG PO DAILY, (Reported) Cholecalciferol (Vitamin D3), 1 TAB PO DAILY, (Reported) Famotidine (Famotidine), 20 MG PO BID, (Reported) Furosemide (Lasix), 40 MG PO QAM Metoprolol Tartrate (Metoprolol Tartrate), 0.5 TAB PO BID, (Reported) Pantoprazole Sodium Sesquihydr (Pantoprazole Sodium), 40 MG PO DAILY Spironolactone (Spironolactone), 1 TAB PO DAILY, (Reported) Discharge Statement: "Patient was advised to return to the ER or call 911 if any headaches, dizziness, shortness of breath, chest pain, abdominal pain, bleeding, fevers, or worsening of medical condition. Patient was counseled about treatment plan, medications, possible side effects, patientverbalized understanding. All questions were answered to the best of my ability. This discharge took greater then 30 minutes in planning, reviewing documentation, counseling the patient, and discussing with other team members." ASSESSMENT ASSESSMENT Assessment Severe symptomatic anemia Date of Service: Aug 23, 2025 Billing Provider: NORMAN MANSFIELD MD Common Visit Codes: 32959-NIF/OBS DISCH DAY >30min SAVANAH OWENS RESIDENT Aug 23, 2025 19:36 NORMAN MANSFIELD MD Aug 23, 2025 22:33
--- NOTE | 2025-08-24 08:06 | ECG ---
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
== END 2025-08-23 14:45 | disposition home or self-care (01) | DRG 377 ==
LOC: ER 09:41 → EDBD 09:41 → OVERFLOW 14:24 → WEST WING 14:35 → TELE-WESTW 08-20 23:42
PROVIDERS: ADMIT Internal Medicine; ATTEND Internal Medicine
PROC: 30233N1 Transfusion of Nonautologous Red Blood Cells into Peripheral Vein, Percutaneous Approach (ICD-10-PCS; principal; 2025-08-19)
PROC: 0DB58ZX Excision of Esophagus, Via Natural or Artificial Opening Endoscopic, Diagnostic (ICD-10-PCS; 2025-08-21)
PROC: 0DB68ZX Excision of Stomach, Via Natural or Artificial Opening Endoscopic, Diagnostic (ICD-10-PCS; 2025-08-21)
DX: K25.4 Chronic or unspecified gastric ulcer with hemorrhage (principal); I85.11 Secondary esophageal varices with bleeding; K20.91 Esophagitis, unspecified with bleeding; K76.7 Hepatorenal syndrome; N17.0 Acute kidney failure with tubular necrosis; J81.0 Acute pulmonary edema; K76.82 Hepatic encephalopathy; J96.10 Chronic respiratory failure, unspecified whether with hypoxia or hypercapnia; J44.9 Chronic obstructive pulmonary disease, unspecified; I12.9 Hypertensive chronic kidney disease with stage 1 through stage 4 chronic kidney disease, or unspecified chronic kidney disease; N18.9 Chronic kidney disease, unspecified; D64.9 Anemia, unspecified; K76.6 Portal hypertension; E88.09 Other disorders of plasma-protein metabolism, not elsewhere classified; I95.9 Hypotension, unspecified; K44.9 Diaphragmatic hernia without obstruction or gangrene; E87.5 Hyperkalemia; K74.60 Unspecified cirrhosis of liver; Z82.0 Family history of epilepsy and other diseases of the nervous system; Z82.49 Family history of ischemic heart disease and other diseases of the circulatory system; Z87.891 Personal history of nicotine dependence; Z90.49 Acquired absence of other specified parts of digestive tract; Z79.899 Other long term (current) drug therapy
CPT/HCPCS: 36415; 43239; 71045; 76705; 80048; 80053; 80076; 81001; 82140; 82607; 82728; 82746; 82962; 83540; 83550; 83605; 83615; 83690; 83880; 84132; 84300; 84484; 85014; 85018; 85025; 85045; 85610; 85730; 86850; 86900; 86901; 86920; 87040; 93005; 93306; 94640; 96360; G0378; J1815; J2003; J2405; J2704